=== PATIENT | male | born 1980 | race Caucasian/White ===

== ENCOUNTER 2016-10-20 11:17 | Inpatient (IN) | payer OTHER ==
[~2016-10-20] VITALS: Ht 152.4 cm; Wt 72.8 kg
[2016-10-20 11:22] VITALS: Ht 152.4 cm; Wt 72.8 kg
--- NOTE | 2016-10-20 12:36 | ERA ---
ER Documentation Chief Complaint Date/Time DATE: 10/20/16 TIME: 12:30 Chief Complaint SWELLING TO NECK AREA SENT BY MD FOR EVAL HPI 36 year old male presents to the emergency department referred by his physician Dr.Cesara Harrell for cough for past weeks. Patient states that he was seen by his physician two weeks prior to being seen and received Levaquin for pneumonia, he states that he finished his antibiotic course without relief however he started to develop supraclavicular swelling in this past week. He went to his physician who has referred him here for evaluation. Patient does admit to weight loss in the past few weeks. He denies fever, chest pain, shortness of breath Denies medications ROS All systems reviewed and are negative except as per history of present illness. Allergies Allergies: Coded Allergies: No Known Allergy (Unverified , 10/20/16) PMhx/Soc Medical and Surgical Hx: pt denies Medical Hx, pt denies Surgical Hx Hx Alcohol Use: No Hx Substance Use: No Hx Tobacco Use: No Smoking Status: Never smoker Physical Exam Vitals Vital Signs Date Time Temp Pulse Resp B/P Pulse Ox O2 Delivery O2 Flow Rate FiO2 10/20/16 11:22 98.4 85 18 115/66 99 Physical Exam Const: WD/WN NAD Head: Atraumatic Eyes: Normal Conjunctiva ENT: Normal External Ears, Nose and Mouth. Neck: Full range of motion..~ No meningismus. Resp: Clear to auscultation bilaterally Cardio: Regular rate and rhythm, no murmurs Abd: Soft, non tender, non distended. Normal bowel sounds Skin: swelling supraclavicular extending to neck Back: No midline or flank tenderness Ext: No cyanosis, or edema Neur: Awake and alert Psych: Normal Mood and Affect Result Diagram: 10/20/16 1219 10/20/16 1219 Results 24 hrs Laboratory Tests Test 10/20/16 12:19 10/20/16 12:21 White Blood Count 15.110^3/ul Red Blood Count 5.1010^6/ul Hemoglobin 15.8g/dl Hematocrit 47.9% Mean Corpuscular Volume 93.9fl Mean Corpuscular Hemoglobin 31.0pg Mean Corpuscular Hemoglobin Concent 33.0g/dl Red Cell Distribution Width 11.3% Platelet Count 00918^3/UL Mean Platelet Volume 9.5fl Neutrophils % 71.6% Lymphocytes % 12.6% Monocytes % 5.9% Eosinophils % 8.8% Basophils % 0.5% Nucleated Red Blood Cells % 0.0/100WBC Neutrophils # 10.810^3/ul Lymphocytes # 1.910^3/ul Monocytes # 0.910^3/ul Eosinophils # 1.310^3/ul Basophils # 0.110^3/ul Nucleated Red Blood Cells # 0.010^3/ul Sodium Level 141mmol/L Potassium Level 4.2mmol/L Chloride Level 105mmol/L Carbon Dioxide Level 29mmol/L Anion Gap 11 Blood Urea Nitrogen 10mg/dl Creatinine 0.84mg/dl Glucose Level 91mg/dl Calcium Level 9.2mg/dl Total Bilirubin 0.4mg/dl Direct Bilirubin 0.00mg/dl Indirect Bilirubin 0.4mg/dl Aspartate Amino Transf (AST/SGOT) 29IU/L Alanine Aminotransferase (ALT/SGPT) 49IU/L Alkaline Phosphatase 102IU/L Total Protein 8.0g/dl Albumin 3.5g/dl Globulin 4.50g/dl Albumin/Globulin Ratio 0.77 Urine Color YELLOW Urine Clarity SLIGHTLY CLOUDY Urine pH 5.0 Urine Specific [place] 1.023 Urine Ketones 1+mg/dL Urine Nitrite NEGATIVEmg/dL Urine Bilirubin NEGATIVEmg/dL Urine Urobilinogen NEGATIVEmg/dL Urine Leukocyte Esterase NEGATIVELeu/ul Urine Microscopic RBC 0/HPF Urine Microscopic WBC 1/HPF Urine Mucus MANY/HPF Urine Hemoglobin NEGATIVEmg/dL Urine Glucose NEGATIVEmg/dL Urine Total Protein NEGATIVEmg/dl Procedures/MDM 36-year-old male presents to the emergency department for cough evaluation of cough and supraclavicular swelling, patient was seen at his primary care physician 2 weeks ago and received Levaquin with no relief. Patient is appropriate for admission for possible fungal, TB infection or diffuse metastatic process. I consulted my supervising physician Dr. Lu who will consult the hospitalist. Patient was placed in isolation. He is stable to be transferred to [facility]. ED course, Blood work was done in the ED, CBC showed mild leukocytosis of 15 CXR: Right lower lobe consolidation, suspicious for pneumonia. Follow-up after treatment is recommended. CT chest with contrast, CT neck with contrast: Marked tree in bud micronodularity is seen diffusely throughout the bilateral lungs with greatest involvement of the right lower lobe. The appearance suggests an acute infectious bronchiolitis. Fungal and TB could have this appearance, however correlation with sputum and blood cultures is recommended. Considered less likely but not excluded is a diffuse metastatic process. Recommend follow up imaging after treatment to confirm resolution. Near complete collapse of the right middle lobe. Right hilar, mediastinal, right supraclavicular, and right lower posterior cervical chain lymphadenopathy is presumably reactive. Departure Diagnosis: Primary Impression: Lung infection Condition: Stable CARMEN SANTANA PA-C Oct 20, 2016 12:36
[2016-10-20 12:46] LABS: BASOPHIL # 0.1 10^3/ul (0.0-0.1); BASOPHILS % 0.5 % (0.0-2.0); EOSINOPHILS # 1.3 10^3/ul (0.0-0.5); EOSINOPHILS % 8.8 % (0.0-7.0); HEMATOCRIT 47.9 % (42.0-52.0); HEMOGLOBIN 15.8 g/dl (14.0-18.0); LYMPHOCYTES # 1.9 10^3/ul (0.8-2.9); LYMPHOCYTES % 12.6 % (15.0-51.0); MEAN CORPUSCULAR VOLUME 93.9 fl (82.0-101.0); MEAN PLATELET VOLUME 9.5 fl (7.4-10.4); MONOCYTE # 0.9 10^3/ul (0.3-0.9); MONOCYTES % 5.9 % (0.0-11.0); NEUTROPHIL # 10.8 10^3/ul (1.6-7.5); NEUTROPHILS % 71.6 % (39.0-77.0); PLATELET COUNT 562 10^3/UL (140-415); RED CELL DISTRIBUTION WIDTH 11.3 % (11.5-14.5); WHITE BLOOD COUNT 15.1 10^3/ul (4.8-10.8)
--- NOTE | 2016-10-20 12:56 | RADRPT ---
PROCEDURE: XR Chest. CLINICAL INDICATION: chest pain, supraclavicular swelling TECHNIQUE: Single frontal view of the chest was obtained COMPARISON: None FINDINGS: The heart and mediastinum are within normal limits. There is right lower lobe consolidation. There is no pleural effusion or pneumothorax. RPTAT: AA IMPRESSION: Right lower lobe consolidation, suspicious for pneumonia. Follow-up after treatment is recommended. .Tyshawn Esposito MD, MD Date Time Electronically viewed and signed by .Tyshawn Esposito MD, on 10/20/2016 12:55 .S/
[2016-10-20 13:01] LABS: ADD UMIC NO; UR ASCORBIC ACID NEGATIVE (NEGATIVE); UR BILIRUBIN (Dip) NEGATIVE (NEGATIVE); UR BLOOD (Dip) NEGATIVE (NEGATIVE); UR CLARITY SLIGHTLY CLOUDY (CLEAR); UR COLOR YELLOW (YELLOW); UR GLUCOSE (Dip) NEGATIVE (NEGATIVE); UR KETONES (Dip) 1+ mg/dL (NEGATIVE); UR LEUKOCYTE ESTERASE (Dip) NEGATIVE Leu/ul (NEGATIVE); UR MUCUS MANY /HPF (NONE SEEN); UR NITRITE (Dip) NEGATIVE (NEGATIVE); UR RBC 0 /HPF (0-5); UR SPECIFIC GRAVITY (Dip) 1.023 (1.003-1.030); UR TOTAL PROTEIN (Dip) NEGATIVE (NEGATIVE); UR UROBILINOGEN (Dip) NEGATIVE (NEGATIVE)
[2016-10-20 13:02] LABS: ALBUMIN 3.5 g/dl (3.3-4.9); ALBUMIN/GLOBULIN RATIO 0.77; BILIRUBIN,INDIRECT 0.4 mg/dl (0-1.1); BILIRUBIN,TOTAL 0.4 mg/dl (0.2-1.3); CALCIUM 9.2 mg/dl (8.4-10.2); CREATININE 0.84 mg/dl (0.61-1.24); POTASSIUM 4.2 mmol/L (3.5-5.1)
[2016-10-20] MEDS ORDERED: IOHEXOL 300MG/ML 150 ML BTL ONE (13:40)
[2016-10-20] MEDS ORDERED: SOD CHLORIDE 0.9% 100 ML ONE (13:40)
--- NOTE | 2016-10-20 14:11 | RADRPT ---
PROCEDURE: CT scan of the neck and chest with contrast. CLINICAL INDICATION: pain, swelling TECHNIQUE: CT scan of the neck and chest was performed. The patient was examined with the use of intravenous administration of 100 cc of Isovue 300 iodinated contrast. No reported complications oc curred. One or more of the following dose reduction techniques were used: Automated exposure contr ol, Adjustment of the mA and/or kV according to patient size, and/or use of iterative reconstruction technique. DOSE: CTDI = 7/9 mGy and the DLP = 565 mGy-cm. COMPARISON: None available FINDINGS: NECK: Enlarged right supraclavicular lymphadenopathy. Prominent right lower posterior cervical chain nodes are seen with inflammatory stranding in the rig ht supraclavicular space. No bulky anterior cervical chain lymphadenopathy. The bilateral parotid and submandibular glands are unremarkable The thyroid gland is unremarkable. No significant airway narrowing The bilateral prestyloid parapharyngeal spaces and retropharyngeal spaces are unremarkable. The major cervical vasculature are patent. The visualized paranasal sinuses and mastoids are clear. No aggressive osteoblastic or osteolytic lesions of the visualized skull base or cervical spine. CHEST: Right hilar and mediastinal lymphadenopathy identified. Near complete collapse of the right middle l obe. Marked tree in bud micronodularity is seen diffusely throughout the bilateral lungs with greate st involvement of the right lower lobe. No significant pleural or pericardial effusion. Heart is nor mal size. IMPRESSION: Marked tree in bud micronodularity is seen diffusely throughout the bilateral lungs with greatest in volvement of the right lower lobe. The appearance suggests an acute infectious bronchiolitis. Funga l and TB could have this appearance, however correlation with sputum and blood cultures is recommend ed. Considered less likely but not excluded is a diffuse metastatic process. Recommend follow up im aging after treatment to confirm resolution. Near complete collapse of the right middle lobe. Right hilar, mediastinal, right supraclavicular, and right lower posterior cervical chain lymphadeno [place] is presumably reactive. RPTAT: AA .Palomo Montana MD, Date Time Electronically viewed and signed by .Palomo Montana MD, on 10/20/2016 14:10 .T/
[2016-10-20 15:08] VITALS: TEMP 98.4
[2016-10-20] MEDS ORDERED: CEFEPIME 1GM/50 ML (PMX) 50 ML IVPB STA (15:38)
[2016-10-20] MEDS ORDERED: VANCOMYCIN 1 GM (PMX) 250 ML IVPB STA (15:38)
[2016-10-20] MEDS ORDERED: SOD CHLORIDE 0.9% 1,000 ML IV SCH (15:44)
[2016-10-20] MEDS ORDERED: ACETAMINOPHEN 325 MG TAB PO PRN ×2 (16:00→19:30)
[2016-10-20] MEDS ORDERED: ONDANSETRON 4 MG INJ IV PRN ×2 (16:00→19:30)
[2016-10-20 18:24] VITALS: BP 130/76; PULSE 90; RESP 18
[2016-10-20] MEDS ORDERED: morphine 2 MG INJ IV PRN (19:30)
[2016-10-20] MEDS ORDERED: NACL 0.9% 3 ML SYG IV SCH (19:30)
[2016-10-20] MEDS ORDERED: DOCUSATE SODIUM 100 MG CAP PO PRN (19:30)
[2016-10-20] MEDS ORDERED: HYDROCODONE/APAP (5/325) TAB PO PRN (19:30)
[2016-10-20] MEDS ORDERED: CEFTRIAXONE 1 GM/50 ML (PMX) 50 ML IVPB SCH (19:30)
[2016-10-20] MEDS ORDERED: ZOLPIDEM 5 MG TAB PO PRN (19:30)
[2016-10-20] MEDS ORDERED: AZITHROMYCIN 500MG/NS (PMX) 250 ML IVPB SCH (19:30)
[2016-10-20 21:47] LABS: TIME 2110
[2016-10-21 06:16] LABS: BASOPHIL # 0.1 10^3/ul (0.0-0.1); BASOPHILS % 0.5 % (0.0-2.0); EOSINOPHILS # 1.6 10^3/ul (0.0-0.5); EOSINOPHILS % 10.7 % (0.0-7.0); HEMATOCRIT 42.1 % (42.0-52.0); HEMOGLOBIN 13.8 g/dl (14.0-18.0); LYMPHOCYTES # 2.2 10^3/ul (0.8-2.9); LYMPHOCYTES % 15.4 % (15.0-51.0); MEAN CORPUSCULAR HEMOGLOBIN 30.7 pg (29.0-33.0); MEAN CORPUSCULAR HGB CONC 32.8 g/dl (32.0-37.0); MEAN CORPUSCULAR VOLUME 93.8 fl (82.0-101.0); MEAN PLATELET VOLUME 9.5 fl (7.4-10.4); MONOCYTE # 1.1 10^3/ul (0.3-0.9); MONOCYTES % 7.3 % (0.0-11.0); NEUTROPHIL # 9.5 10^3/ul (1.6-7.5); NEUTROPHILS % 65.1 % (39.0-77.0); PLATELET COUNT 476 10^3/UL (140-415); RED BLOOD COUNT 4.49 10^6/ul (4.70-6.10); RED CELL DISTRIBUTION WIDTH 11.6 % (11.5-14.5); WHITE BLOOD COUNT 14.6 10^3/ul (4.8-10.8)
--- NOTE | 2016-10-21 06:22 | HP ---
Date/Time of Note Date/Time of Note DATE: 10/21/16 TIME: 06:09 Assessment/Plan VTE Prophylaxis VTE Prophylaxis Intervention: SCD's Lines/Catheters IV C[facility]ter [facility] (from [facility]): Peripheral IV Assessment/Plan Assessment/Plan 1. Infectious bronchiolitis -IV antibiotic -will send sputum for Gram stain and culture -Rule out TB -Cocci antigen -Pulmonary and ID consult -Airborne/droplet isolation -His presentation and finding on imaging is most likely from a infectious process. If there is suspicion for malignancy, then will do cancer workup as needed. Notes that, per patient" right neck swelling", which is supraclavicular lymphadenopathy has already gone down remarkably supporting the diagnosis of infectious etiology 2. Sepsis, secondary to above -See #1 HPI/ROS Admit Date/Time Admit Date/Time Oct 20, 2016 at 15:46 Hx of Present Illness This is a 36-year-old male with no past medical history who presented to the emergency department complaining of right-sided neck swelling. He said that 2 weeks ago, started developing cough productive of yellow sputum as well as fever. He was diagnosed with pneumonia and was placed on Levaquin and after that he said his symptoms resolved completely. Yesterday, he noticed swelling on the right side of his neck which worsened today in the surgery he came here for evaluation. He said there is only very minimal tenderness. By the time I saw him, he said the swelling has already gone down remarkably since he presented to the ER. He looks very comfortable and currently he does not have any complaints. He denied shortness of breath, fever/chills or chest pain. Denied history of TB. When he presented to the ER, chest x-ray showed right lower lobe consolidation, suspicious for pneumonia. Chest CT showed Marked tree in bud micronodularity is seen diffusely throughout the bilateral lungs with greatest involvement of the right lower lobe. The appearance suggests an acute infectious bronchiolitis. Fungal and TB could have this appearance, however correlation with sputum and blood cultures is recommended. Considered less likely but not excluded is a diffuse metastatic process. Recommend follow up imaging after treatment to confirm resolution. Near complete collapse of the right middle lobe. Right hilar, mediastinal, right supraclavicular, and right lower posterior cervical chain lymphadenopathy is presumably reactive. PMH/Family/Social Social History Smoking Status: Light tobacco smoker Exam/Review of Systems Vital Signs Vitals Vital Signs Date Time Temp Pulse Resp B/P Pulse Ox O2 Delivery O2 Flow Rate FiO2 10/20/16 18:24 97.3 90 18 130/76 96 Room Air Intake and Output 10/20/16 10/20/16 10/21/16 15:00 23:00 07:00 Intake Total 500 ml 960 ml Balance 500 ml 960 ml Exam Constitutional: alert, oriented, well developed Head: atraumatic, normocephalic Eyes: EOMI, PERRL Respiratory: diminished breath sounds Cardiovascular: nl pulses, regular rate and rhythm Gastrointestinal: non-tender, soft Extremities: normal pulses Labs Result Diagram: 10/20/16 1219 10/20/16 1219 Medications Medications Current Medications Ondansetron HCl (Zofran Inj) 4 mg Q6H PRN IV NAUSEA AND/OR VOMITING; Start at 19:30 Acetaminophen (Tylenol Tab) 650 mg Q6H PRN PO PAIN LEVEL 1-3 OR FEVER; Start at 19:30 Acetaminophen/ Hydrocodone Bitart ([place] (5/325)) 1 tab Q6H PRN PO MODERATE PAIN LEVEL 4-6; Start 10/20/16 at 19:30 Morphine Sulfate (morphine) 2 mg Q4H PRN IV SEVERE PAIN LEVEL 7-10; Start 10/20 at 19:30 Docusate Sodium (Colace) 100 mg Q12H PRN PO CONSTIPATION; Start 10/20/16 at 19: 30 Zolpidem Tartrate (Ambien) 5 mg QHS PRN PO SLEEP; Start 10/20/16 at 19:30 Enoxaparin Sodium 40 mg 40 mg DAILY SC ; Start 10/21/16 at 09:00 Ceftriaxone Sodium 50 ml @ 100 mls/hr Q24H IVPB Last administered on t 20:44; Admin Dose 100 MLS/HR; Start 10/20/16 at 19:30 Azithromycin 250 ml @ 250 mls/hr Q24H IVPB Last administered on 10/20/16t 20: 44; Admin Dose 250 MLS/HR; Start 10/20/16 at 19:30 Voriconazole/ Dextrose (Vfend Iv/D5W) 100 ml @ 50 mls/hr Q12 IVPB ; Start 10/21 at 09:00 FUNMILAYO MARQUEZ MD Oct 21, 2016 06:21
[2016-10-21 06:42] LABS: ALANINE AMINOTRANSFERASE 43 IU/L (13-69); ALBUMIN 2.9 g/dl (3.3-4.9); ALBUMIN/GLOBULIN RATIO 0.74; ALKALINE PHOSPHATASE 88 IU/L (42-121); ANION GAP 10 (8-16); ASPARTATE AMINO TRANSFERASE 21 IU/L (15-46); BILIRUBIN,INDIRECT 0.2 mg/dl (0-1.1); BILIRUBIN,TOTAL 0.2 mg/dl (0.2-1.3); BLOOD UREA NITROGEN 15 mg/dl (7-20); CALCIUM 8.2 mg/dl (8.4-10.2); CARBON DIOXIDE 25 mmol/L (21-31); CHLORIDE 107 mmol/L (97-110); CHOL/HDL RATIO 7.3 RATIO; CHOLESTEROL 125 mg/dl (100-200); CREATININE 0.81 mg/dl (0.61-1.24); GLUCOSE 97 mg/dl (70-220); HDL CHOLESTEROL 17 mg/dl (28-63); MAGNESIUM 2.2 mg/dl (1.7-2.5); PHOSPHORUS 3.2 mg/dl (2.5-4.9); POTASSIUM 3.9 mmol/L (3.5-5.1); SODIUM 138 mmol/L (135-144); TOTAL PROTEIN 6.8 g/dl (6.1-8.1); TRIGLYCERIDES 83 mg/dl (0-149)
[2016-10-21 07:11] LABS: CARCINOEMBRYONIC ANTIGEN 0.5 ng/ml (0.0-5.0)
--- NOTE | 2016-10-21 07:23 | RADRPT ---
PROCEDURE: US Scrotum. CLINICAL INDICATION: Scrotal pain. TECHNIQUE: Multiple sonographic images of the scrotal region were obtained utilizing a linear arra y transducer with grayscale and color-flow and pulsed Doppler imaging. The images were reviewed on a high-resolution PACS workstation. COMPARISON: No prior studies are available for comparison. FINDINGS: The right testis measures 4.1 x 1.9 x 3.3 cm. The left testis measures 3.3 x 1.8 x 3.2 cm. There is no intratesticular mass. The epididymi are normal. There is normal flow to both testes demonstrated with color Doppler and pulsed Doppler sonography. There are small bilateral hydroceles. There is no varicocele. The scrotal wall is unremarkable. IMPRESSION: 1. Normal testes. 2. Small bilateral hydroceles. 3. Otherwise unremarkable study. RPTAT: QQ .Blayne Philippe MD, Date Time Electronically viewed and signed by .Blayne Philippe MD, on 10/21/2016 07:23 .R/
[2016-10-21 08:19] VITALS: BP 101/65; RESP 16
[2016-10-21] MEDS: ENOXAPARIN 40 MG/0.4 ML SYG SC SCH (09:00)
[2016-10-21] MEDS: DEXTROSE 5% IVPB SCH ×2 (09:18→23:52)
[2016-10-21] MEDS: VORICONAZOLE IVPB SCH ×2 (09:18→23:52)
[2016-10-21 09:40] LABS: CANCER ANTIGEN 19-9 2.5 U/ml (0.0-37.0)
[2016-10-21 14:36] VITALS: BP 102/62; RESP 16
--- NOTE | 2016-10-21 18:35 | CONS ---
Date/Time of Note Date/Time of Note DATE: 10/21/16 TIME: 18:31 Assessment/Plan Assessment/Plan Additional Assessment/Plan IMP: 1. RML consolidation/cavity with surrounding tree-in-bud micronodules--most c/w pulm TB RECS: 1. AFB x 3 and PCR 2. HIV 3. CRAG 4. Cocci serologies Consultation Date/Type/Reason Admit Date/Time Oct 20, 2016 at 15:46 Type of Consultation: Pulm Hx of Present Illness This is a 36-year-old male with no past medical history who presented to the emergency department complaining of right-sided neck swelling. He said that 2 weeks ago, started developing cough productive of yellow sputum as well as fever. He was diagnosed with pneumonia and was placed on Levaquin and after that he said his symptoms resolved completely. Yesterday, he noticed swelling on the right side of his neck which worsened today in the surgery he came here for evaluation. He said there is only very minimal tenderness. By the time I saw him, he said the swelling has already gone down remarkably since he presented to the ER. He looks very comfortable and currently he does not have any complaints. He denied shortness of breath, fever/chills or chest pain. Denied history of TB. Constitutional: no complaints Eyes: no complaints ENT: no complaints Respiratory: cough, shortness of breath Cardiovascular: no complaints Gastrointestinal: no complaints Genitourinary: no complaints Musculoskeletal: no complaints Skin: no complaints Neurologic: no complaints Endocrine: no complaints Lymphatic: no complaints Past Medical History Medical History: no pertinent history Family History Significant Family History: no pertinent family hx Social History Alcohol Use: none Smoking Status: Never smoker Drug Use: none Exam/Review of Systems Vital Signs Vitals Vital Signs Date Time Temp Pulse Resp B/P Pulse Ox O2 Delivery O2 Flow Rate FiO2 10/21/16 14:36 98.2 89 16 102/62 92 10/20/16 18:24 Room Air Intake and Output 10/20/16 10/20/16 10/21/16 15:00 23:00 07:00 Intake Total 500 ml 960 ml Balance 500 ml 960 ml Exam Constitutional: alert Head: atraumatic, normocephalic Eyes: EOMI, nl conjunctiva, nl lids Neck: masses Respiratory: clear to auscultation Cardiovascular: regular rate and rhythm Gastrointestinal: nl liver, spleen, non-tender, soft Musculoskeletal: nl extremities to inspection Extremities: normal pulses Results Result Diagram: 10/21/16 0534 10/21/16 0534 Results 24 hrs Laboratory Tests Test 10/20/16 21:10 10/21/16 05:34 TB Skin Test Induration Pending TB Skin Test Administer Date [id number] TB Skin Test Administer Time 2109 TB Skin Test Injection Site Left Upper Forearm White Blood Count 14.6 H Red Blood Count 4.49 L Hemoglobin 13.8 L Hematocrit 42.1 Mean Corpuscular Volume 93.8 Mean Corpuscular Hemoglobin 30.7 Mean Corpuscular Hemoglobin Concent 32.8 Red Cell Distribution Width 11.6 Platelet Count 476 H Mean Platelet Volume 9.5 Neutrophils % 65.1 Lymphocytes % 15.4 Monocytes % 7.3 Eosinophils % 10.7 H Basophils % 0.5 Nucleated Red Blood Cells % 0.0 Neutrophils # 9.5 H Lymphocytes # 2.2 Monocytes # 1.1 H Eosinophils # 1.6 H Basophils # 0.1 Nucleated Red Blood Cells # 0.0 Sodium Level 138 Potassium Level 3.9 Chloride Level 107 Carbon Dioxide Level 25 Anion Gap 10 Blood Urea Nitrogen 15 Creatinine 0.81 Glucose Level 97 Hemoglobin A1c 5.9 Calcium Level 8.2 L Phosphorus Level 3.2 Magnesium Level 2.2 Total Bilirubin 0.2 Direct Bilirubin 0.00 Indirect Bilirubin 0.2 Aspartate Amino Transf (AST/SGOT) 21 Alanine Aminotransferase (ALT/SGPT) 43 Alkaline Phosphatase 88 Total Protein 6.8 # Albumin 2.9 L Globulin 3.90 H Albumin/Globulin Ratio 0.74 Triglycerides Level 83 Cholesterol Level 125 LDL Cholesterol, Calculated 91 HDL Cholesterol 17 L Cholesterol/HDL Ratio 7.3 Carcinoembryonic Antigen 0.5 CA 19-9 Antigen 2.5 HIV (1&2) Antibody NEGATIVE Medications Medications Current Medications Ondansetron HCl (Zofran Inj) 4 mg Q6H PRN IV NAUSEA AND/OR VOMITING; Start at 19:30 Acetaminophen (Tylenol Tab) 650 mg Q6H PRN PO PAIN LEVEL 1-3 OR FEVER; Start at 19:30 Acetaminophen/ Hydrocodone Bitart ([place] (5/325)) 1 tab Q6H PRN PO MODERATE PAIN LEVEL 4-6; Start 10/20/16 at 19:30 Morphine Sulfate (morphine) 2 mg Q4H PRN IV SEVERE PAIN LEVEL 7-10; Start 10/20 at 19:30 Docusate Sodium (Colace) 100 mg Q12H PRN PO CONSTIPATION; Start 10/20/16 at 19: 30 Zolpidem Tartrate (Ambien) 5 mg QHS PRN PO SLEEP; Start 10/20/16 at 19:30 Enoxaparin Sodium 40 mg 40 mg DAILY SC ; Start 10/21/16 at 09:00 Ceftriaxone Sodium 50 ml @ 100 mls/hr Q24H IVPB Last administered on 20:44; Admin Dose 100 MLS/HR; Start 10/20/16 at 19:30 Azithromycin 250 ml @ 250 mls/hr Q24H IVPB Last administered on 10/20/16 20: 44; Admin Dose 250 MLS/HR; Start 10/20/16 at 19:30 Voriconazole/ Dextrose (Vfend Iv/D5W) 100 ml @ 50 mls/hr Q12 IVPB Last administered on 10/21/16 09:18; Admin Dose 50 MLS/HR; Start 10/21/16 at 09:00 RADHA PATE MD Oct 21, 2016 18:35
[2016-10-21] MEDS ORDERED: VANCOMYCIN IV PER PHARMACY XX SCH (19:00)
[2016-10-21] MEDS ORDERED: VANCOMYCIN 1.25 GM in SOD CHLORIDE 0.9% 250 ML IVPB SCH (20:00)
[2016-10-21 20:21] VITALS: BP 106/68; RESP 20
[2016-10-21] MEDS ORDERED: VANCOMYCIN 1 GM (PMX) 250 ML IVPB SCH (21:00)
--- NOTE | 2016-10-21 22:29 | CONS ---
DATE OF ADMISSION: 10/20/2016 DATE OF CONSULTATION: 10/21/2016 REASON FOR CONSULTATION: Antibiotic management. HISTORY OF PRESENT ILLNESS: The patient is a 36-year-old, male, with no past medical history, who came to the emergency room with right-sided neck swelling. He notes that 2 weeks ago he started developing a cough productive of yellow sputum as well as subjective feelings of fever. He was diagnosed with pneumonia and placed on Levaquin, and after that his symptoms resolved completely. Yesterday, however, he noticed swelling on the right side of his neck, which worsened today, and he came for evaluation. There is minimal tenderness. His swelling had gone down remarkably since he presented to the emergency room. Denies fever, chills, shortness of breath. DIAGNOSTIC DATA: Chest x-ray showed right lower lobe consolidation suspicious for pneumonia. CT scan of the chest showed marked tree-in-bud micro nodularity diffusely throughout the lungs bilaterally with greatest involvement of the right lower lobe suggestive of acute infectious bronchiolitis. According to radiology, fungal and TB change could have this appearance, however, correlation with sputum and blood cultures were recommended. There is near complete collapse of the right middle lobe, right hilar mediastinal, right supraclavicular, and right lower posterior cervical chain lymphadenopathy is presumably reactive. Diffuse metastatic process can be considered, but is on likely. PAST MEDICAL HISTORY: Operations as outlined. FAMILY HISTORY: Noncontributory. SOCIAL HISTORY: He smokes 1 or 2 cigarettes per day. ALLERGIES: NONE TO PENICILLIN, SULFA, OR FOODS. MEDICATIONS: Per chart. REVIEW OF SYSTEMS: As per HPI. PHYSICAL EXAMINATION: GENERAL: Patient is a well-developed, well-nourished male, who is alert, responsive, in no acute distress. VITAL SIGNS: Stable. He is afebrile. SKIN: Without generalized rash. HEENT: Within normal limits. NECK: Supple. Lymph nodes nonpalpable. CHEST: Decreased breath sounds at the bases. HEART: Without murmur or gallop. ABDOMEN: Soft, nontender, without organosplenomegaly or masses. EXTREMITIES: Without cyanosis, clubbing, or edema. RECTAL/GENITAL: Deferred. NEUROLOGIC: No focal neurological abnormalities. ANCILLARY LABORATORY DATA: White count of 15.1, H and H of 15.8 and 47.9, platelet count 562,000. BUN and creatinine 10/0.84, random glucose 91. PLAN: The patient was started on azithromycin and ceftriaxone as well as voriconazole. He had been on Levaquin previously. Blood cultures showed gram-positive cocci in clusters 1 out of 2. Patient was started on vancomycin. He is still on ceftriaxone and azithromycin. I am going to switch him over to cefepime. Await cultures. I will dictate my findings to the hospitalist. Of note is the fact that HIV screening was ordered. QuantiFERON Gold, PPD intermediate, COXI antibodies were ordered, which I concur. I will dictate my findings to the hospitalist. Dictated By: Johan Kearney MD JD/[email or web address] /Document#: [id number]
[2016-10-21] MEDS: CEFEPIME 1GM/50 ML (PMX) 50 ML IVPB SCH (23:52)
[2016-10-22 02:29] VITALS: BP 101/64; RESP 20
[2016-10-22 06:27] LABS: BASOPHIL # 0.1 10^3/ul (0.0-0.1); BASOPHILS % 0.6 % (0.0-2.0); EOSINOPHILS # 1.4 10^3/ul (0.0-0.5); EOSINOPHILS % 10.3 % (0.0-7.0); HEMATOCRIT 43.4 % (42.0-52.0); HEMOGLOBIN 14.1 g/dl (14.0-18.0); LYMPHOCYTES % 15.1 % (15.0-51.0); MEAN CORPUSCULAR HEMOGLOBIN 30.7 pg (29.0-33.0); MEAN CORPUSCULAR HGB CONC 32.5 g/dl (32.0-37.0); MEAN CORPUSCULAR VOLUME 94.6 fl (82.0-101.0); MEAN PLATELET VOLUME 9.6 fl (7.4-10.4); MONOCYTE # 0.9 10^3/ul (0.3-0.9); MONOCYTES % 6.7 % (0.0-11.0); NEUTROPHIL # 9.1 10^3/ul (1.6-7.5); NEUTROPHILS % 66.9 % (39.0-77.0); PLATELET COUNT 441 10^3/UL (140-415); RED BLOOD COUNT 4.59 10^6/ul (4.70-6.10); RED CELL DISTRIBUTION WIDTH 11.7 % (11.5-14.5); WHITE BLOOD COUNT 13.5 10^3/ul (4.8-10.8)
[2016-10-22 07:08] LABS: CALCIUM 8.5 mg/dl (8.4-10.2); CREATININE 0.77 mg/dl (0.61-1.24); POTASSIUM 4.2 mmol/L (3.5-5.1)
[2016-10-22] MEDS ORDERED: VANCOMYCIN 1 GM in NS 250 ML IVPB SCH (08:00)
[2016-10-22 08:25] VITALS: BP 110/65; RESP 16
[2016-10-22] MEDS: CEFEPIME 1GM/50 ML (PMX) 50 ML IVPB SCH ×2 (08:45→20:37)
[2016-10-22] MEDS: ENOXAPARIN 40 MG/0.4 ML SYG SC SCH (08:51)
[2016-10-22] MEDS: VORICONAZOLE IVPB SCH ×2 (12:59→21:24)
[2016-10-22] MEDS: DEXTROSE 5% IVPB SCH ×2 (12:59→21:24)
[2016-10-22 13:01] VITALS: BP 96/54; RESP 16
--- NOTE | 2016-10-22 16:46 | CONS ---
Date/Time of Note Date/Time of Note DATE: 10/22/16 TIME: 16:44 Consult Date/Type/Reason Admit Date/Time Oct 20, 2016 at 15:46 Initial Consult Date Type of Consultation: Pulm Subjective Remains on broad-spectrum abx. BC x 1 for staph noted. Objective Vital Signs Date Time Temp Pulse Resp B/P Pulse Ox O2 Delivery O2 Flow Rate FiO2 10/22/16 13:01 98.4 78 16 96/54 95 10/20/16 18:24 Room Air Intake and Output 10/21/16 10/21/16 10/22/16 15:00 23:00 07:00 Intake Total 100 ml 720 ml 1010 ml Balance 100 ml 720 ml 1010 ml Exam HEENT: Neck supple; no JVD; no LAD CVS: RRR, S1 and S2 CHEST: Right basilar rales and rhonchi ABD: Soft, NT, + BS EXT: No c/c/e Results/Medications Result Diagram: 10/22/16 0554 10/22/16 0554 Results 24 hrs Laboratory Tests Test 10/21/16 19:48 10/22/16 05:54 HIV (1&2) Antibody NEGATIVE White Blood Count 13.5 H Red Blood Count 4.59 L Hemoglobin 14.1 Hematocrit 43.4 Mean Corpuscular Volume 94.6 Mean Corpuscular Hemoglobin 30.7 Mean Corpuscular Hemoglobin Concent 32.5 Red Cell Distribution Width 11.7 Platelet Count 441 H Mean Platelet Volume 9.6 Neutrophils % 66.9 Lymphocytes % 15.1 Monocytes % 6.7 Eosinophils % 10.3 H Basophils % 0.6 Nucleated Red Blood Cells % 0.0 Neutrophils # 9.1 H Lymphocytes # 2.0 Monocytes # 0.9 Eosinophils # 1.4 H Basophils # 0.1 Nucleated Red Blood Cells # 0.0 Sodium Level 138 Potassium Level 4.2 Chloride Level 107 Carbon Dioxide Level 24 Anion Gap 11 Blood Urea Nitrogen 9 Creatinine 0.77 Glucose Level 111 Calcium Level 8.5 Medications Current Medications Ondansetron HCl (Zofran Inj) 4 mg Q6H PRN IV NAUSEA AND/OR VOMITING; Start at 19:30 Acetaminophen (Tylenol Tab) 650 mg Q6H PRN PO PAIN LEVEL 1-3 OR FEVER; Start at 19:30 Acetaminophen/ Hydrocodone Bitart ([place] (5/325)) 1 tab Q6H PRN PO MODERATE PAIN LEVEL 4-6; Start 10/20/16 at 19:30 Morphine Sulfate (morphine) 2 mg Q4H PRN IV SEVERE PAIN LEVEL 7-10; Start 10/20 at 19:30 Docusate Sodium (Colace) 100 mg Q12H PRN PO CONSTIPATION; Start 10/20/16 at 19: 30 Zolpidem Tartrate (Ambien) 5 mg QHS PRN PO SLEEP; Start 10/20/16 at 19:30 Enoxaparin Sodium 40 mg 40 mg DAILY SC Last administered on 10/22/16 08:51; Admin Dose 40 MG; Start 10/21/16 at 09:00 Voriconazole 200 mg/Dextrose 100 ml @ 50 mls/hr Q12 IVPB Last administered on 10/22/16 12:59; Admin Dose 50 MLS/HR; Start 10/21/16 at 09:00 Cefepime HCl 50 ml @ 100 mls/hr Q12 IVPB Last administered on 10/22/16 08:45 ; Admin Dose 100 MLS/HR; Start 10/21/16 at 21:00 Vancomycin HCl (Vancocin) 250 ml @ 125 mls/hr Q12H IVPB Last administered on 09:49; Admin Dose 125 MLS/HR; Start 10/22/16 at 08:00 Miscellaneous Information (*Rx Drug Level Order Reminder*) VANCOMYCIN TROUGH AT 0700 ONCE ONCE XX ; Start 10/23/16 at 07:00; Stop 10/23/16 at 07:01 Assessment/Plan Chief Complaint/Hosp Course This is a 36-year-old male with no past medical history who presented to the emergency department complaining of right-sided neck swelling. He said that 2 weeks ago, started developing cough productive of yellow sputum as well as fever. He was diagnosed with pneumonia and was placed on Levaquin and after that he said his symptoms resolved completely. Yesterday, he noticed swelling on the right side of his neck which worsened today in the surgery he came here for evaluation. He said there is only very minimal tenderness. By the time I saw him, he said the swelling has already gone down remarkably since he presented to the ER. He looks very comfortable and currently he does not have any complaints. He denied shortness of breath, fever/chills or chest pain. Denied history of TB. Problems: Additional Assessment/Plan IMP: 1. RML consolidation/cavity with surrounding tree-in-bud micronodules--most c/w pulm TB vs. cocci vs. cypto. RECS: 1. AFB x 3 and PCR 2. HIV 3. CRAG 4. Cocci serologies 5. CAP abx coverage as per RADHA MEYERS MD Oct 22, 2016 16:46
--- NOTE | 2016-10-22 18:36 | PN ---
Date/Time of Note Date/Time of Note DATE: 10/22/16 TIME: 18:34 Assessment/Plan VTE Prophylaxis VTE Prophylaxis Intervention: ambulation Lines/Catheters [facility] Saline Lock Assessment/Plan Chief Complaint/Hosp Course 1. Infectious bronchiolitis -IV antibiotic -Follow-up on sputum for Gram stain and culture -Rule out TB -Cocci antigen -Pulmonary and ID consults appreciated -Airborne/droplet isolation -His presentation and finding on imaging is most likely from a infectious process, tumor markers and testicular ultrasound are negative 2. Sepsis, secondary to above -See #1 -102 blood culture shows staph possibly secondary to contamination, follow-up ID recommendation Problems: Subjective 24 Hr Interval Summary Constitutional: no complaints Exam/Review of Systems Vital Signs Vitals Vital Signs Date Time Temp Pulse Resp B/P Pulse Ox O2 Delivery O2 Flow Rate FiO2 10/22/16 13:01 98.4 78 16 96/54 95 10/20/16 18:24 Room Air Intake and Output 10/21/16 10/21/16 10/22/16 15:00 23:00 07:00 Intake Total 100 ml 720 ml 1010 ml Balance 100 ml 720 ml 1010 ml Exam Constitutional: alert, oriented Respiratory: clear to auscultation Cardiovascular: regular rate and rhythm Gastrointestinal: soft, No distended Musculoskeletal: nl extremities to inspection Results Result Diagram: 10/22/16 0554 10/22/16 0554 Results 24 hrs Laboratory Tests Test 10/21/16 19:48 10/22/16 05:54 HIV (1&2) Antibody NEGATIVE White Blood Count 13.5 H Red Blood Count 4.59 L Hemoglobin 14.1 Hematocrit 43.4 Mean Corpuscular Volume 94.6 Mean Corpuscular Hemoglobin 30.7 Mean Corpuscular Hemoglobin Concent 32.5 Red Cell Distribution Width 11.7 Platelet Count 441 H Mean Platelet Volume 9.6 Neutrophils % 66.9 Lymphocytes % 15.1 Monocytes % 6.7 Eosinophils % 10.3 H Basophils % 0.6 Nucleated Red Blood Cells % 0.0 Neutrophils # 9.1 H Lymphocytes # 2.0 Monocytes # 0.9 Eosinophils # 1.4 H Basophils # 0.1 Nucleated Red Blood Cells # 0.0 Sodium Level 138 Potassium Level 4.2 Chloride Level 107 Carbon Dioxide Level 24 Anion Gap 11 Blood Urea Nitrogen 9 Creatinine 0.77 Glucose Level 111 Calcium Level 8.5 Medications Medications Current Medications Ondansetron HCl (Zofran Inj) 4 mg Q6H PRN IV NAUSEA AND/OR VOMITING; Start at 19:30 Acetaminophen (Tylenol Tab) 650 mg Q6H PRN PO PAIN LEVEL 1-3 OR FEVER; Start at 19:30 Acetaminophen/ Hydrocodone Bitart ([place] (5/325)) 1 tab Q6H PRN PO MODERATE PAIN LEVEL 4-6; Start 10/20/16 at 19:30 Morphine Sulfate (morphine) 2 mg Q4H PRN IV SEVERE PAIN LEVEL 7-10; Start 10/20 at 19:30 Docusate Sodium (Colace) 100 mg Q12H PRN PO CONSTIPATION; Start 10/20/16 at 19: 30 Zolpidem Tartrate (Ambien) 5 mg QHS PRN PO SLEEP; Start 10/20/16 at 19:30 Enoxaparin Sodium 40 mg 40 mg DAILY SC Last administered on 10/22/16 08:51; Admin Dose 40 MG; Start 10/21/16 at 09:00 Voriconazole 200 mg/Dextrose 100 ml @ 50 mls/hr Q12 IVPB Last administered on 10/22/16 12:59; Admin Dose 50 MLS/HR; Start 10/21/16 at 09:00; Stop 10/22/16 at 23:59 Cefepime HCl 50 ml @ 100 mls/hr Q12 IVPB Last administered on 10/22/16 08:45 ; Admin Dose 100 MLS/HR; Start 10/21/16 at 21:00 Vancomycin HCl (Vancocin) 250 ml @ 125 mls/hr Q12H IVPB ; Start 10/22/16 at 22: 00 Miscellaneous Information (*Rx Drug Level Order Reminder*) VANCOMYCIN TROUGH AT 0900 ONCE ONCE XX ; Start 10/23/16 at 09:00; Stop 10/23/16 at 09:01 Voriconazole (Vfend) 200 mg Q12 PO ; Start 10/23/16 at 09:00 LEX JANG Oct 22, 2016 18:36
[2016-10-22 19:35] VITALS: BP 151/61; RESP 20
--- NOTE | 2016-10-22 20:00 | CONS ---
Date/Time of Note Date/Time of Note DATE: 10/22/16 TIME: 19:50 Assessment/Plan Assessment/Plan Chief Complaint/Hosp Course ID PROGRESS NOTE CURRENT ABX: =>Vanco IV + Cefepime + VFEND 24H INTERVAL SUMMARY * Feeling much better, no cough, ambulatory in room, no fevers * BCx 10/20 (+)1/2 bottles Staph species => Suspect skin contaminant * PPD placed 10/20 pm (-) to date * Sputum: AFB SMEAR Final ACID FAST BACILLI NONE SEEN EXAM GEN: VSS, NAD HEENT: Unremarkable NECK: supple CVS: RRR CHEST: Equal chest rise bilaterally without dyspnea on observation ABD: Soft, NT, EXT: warm.moves all extremities SKIN: No rash, no diaphoresis ID ASSESSMENT 36 yo M admit with: 1. SIRS w/leukocytosis, no fevers/chills 2. Infectious bronchiolitis 3. Possible PNA -> RML consolidation/cavity with surrounding tree-in-bud micronodules--most c/w pulm TB vs. cocci vs. cypto.= Per pulmonary note * PPD placed 10/20 pm (-) to date * Sputum: AFB SMEAR Final ACID FAST BACILLI NONE SEEN 4. Bacteremia 10/20 BCx (+)1/2 bottles from ED w/Staph species -> Doubt sepsis, no fevers, suspect skin contaminant ( ? ) MRSA Nares-> Pending INVASIVES: PIV ABX ALLERGY: KNDA CURRENT ABX: =>=>Vanco IV + Cefepime + VFEND ID RECOMMENDATIONS 1. Continue ABX 2. If PPD (-) Tomorrow = 72 H, then DC isolation 3. Check for MRSA Nares, if (-) and if BCx (+)Staph Coag Negative then DC Vanco IV . Problems: Consultation Date/Type/Reason Admit Date/Time Oct 20, 2016 at 15:46 Initial Consult Date Type of Consultation: ID Exam/Review of Systems Vital Signs Vitals Vital Signs Date Time Temp Pulse Resp B/P Pulse Ox O2 Delivery O2 Flow Rate FiO2 10/22/16 19:35 98.3 86 20 151/61 98 10/20/16 18:24 Room Air Intake and Output 10/21/16 10/21/16 10/22/16 15:00 23:00 07:00 Intake Total 100 ml 720 ml 1010 ml Balance 100 ml 720 ml 1010 ml Results Result Diagram: 10/22/16 0554 10/22/16 0554 Results 24 hrs Laboratory Tests Test 10/22/16 05:54 White Blood Count 13.5 H Red Blood Count 4.59 L Hemoglobin 14.1 Hematocrit 43.4 Mean Corpuscular Volume 94.6 Mean Corpuscular Hemoglobin 30.7 Mean Corpuscular Hemoglobin Concent 32.5 Red Cell Distribution Width 11.7 Platelet Count 441 H Mean Platelet Volume 9.6 Neutrophils % 66.9 Lymphocytes % 15.1 Monocytes % 6.7 Eosinophils % 10.3 H Basophils % 0.6 Nucleated Red Blood Cells % 0.0 Neutrophils # 9.1 H Lymphocytes # 2.0 Monocytes # 0.9 Eosinophils # 1.4 H Basophils # 0.1 Nucleated Red Blood Cells # 0.0 Sodium Level 138 Potassium Level 4.2 Chloride Level 107 Carbon Dioxide Level 24 Anion Gap 11 Blood Urea Nitrogen 9 Creatinine 0.77 Glucose Level 111 Calcium Level 8.5 Medications Medications Current Medications Ondansetron HCl (Zofran Inj) 4 mg Q6H PRN IV NAUSEA AND/OR VOMITING; Start at 19:30 Acetaminophen (Tylenol Tab) 650 mg Q6H PRN PO PAIN LEVEL 1-3 OR FEVER; Start at 19:30 Acetaminophen/ Hydrocodone Bitart ([place] (5/325)) 1 tab Q6H PRN PO MODERATE PAIN LEVEL 4-6; Start 10/20/16 at 19:30 Morphine Sulfate (morphine) 2 mg Q4H PRN IV SEVERE PAIN LEVEL 7-10; Start 10/20 at 19:30 Docusate Sodium (Colace) 100 mg Q12H PRN PO CONSTIPATION; Start 10/20/16 at 19: 30 Zolpidem Tartrate (Ambien) 5 mg QHS PRN PO SLEEP; Start 10/20/16 at 19:30 Enoxaparin Sodium 40 mg 40 mg DAILY SC Last administered on 10/22/16 08:51; Admin Dose 40 MG; Start 10/21/16 at 09:00 Voriconazole 200 mg/Dextrose 100 ml @ 50 mls/hr Q12 IVPB Last administered on 10/22/16 12:59; Admin Dose 50 MLS/HR; Start 10/21/16 at 09:00; Stop 10/22/16 at 23:59 Cefepime HCl 50 ml @ 100 mls/hr Q12 IVPB Last administered on 10/22/16t 08:45 ; Admin Dose 100 MLS/HR; Start 10/21/16 at 21:00 Vancomycin HCl (Vancocin) 250 ml @ 125 mls/hr Q12H IVPB ; Start 10/22/16 at 22: 00 Miscellaneous Information (*Rx Drug Level Order Reminder*) VANCOMYCIN TROUGH AT 0900 ONCE ONCE XX ; Start 10/23/16 at 09:00; Stop 10/23/16 at 09:01 Voriconazole (Vfend) 200 mg Q12 PO ; Start 10/23/16 at 09:00 FRANCOIS JEWELL NP Oct 22, 2016 20:00
[2016-10-22 21:34] LABS: FORTY EIGHT HOUR READING 0 mm (0-9)
[2016-10-22] MEDS: VANCOMYCIN 1 GM in NS 250 ML IVPB SCH (22:47)
[2016-10-23 02:07] VITALS: BP 102/55; RESP 18
[2016-10-23 06:08] LABS: BASOPHIL # 0.1 10^3/ul (0.0-0.1); BASOPHILS % 0.8 % (0.0-2.0); EOSINOPHILS # 1.6 10^3/ul (0.0-0.5); EOSINOPHILS % 12.2 % (0.0-7.0); HEMATOCRIT 42.8 % (42.0-52.0); HEMOGLOBIN 14.1 g/dl (14.0-18.0); LYMPHOCYTES # 2.4 10^3/ul (0.8-2.9); LYMPHOCYTES % 18.6 % (15.0-51.0); MEAN CORPUSCULAR HEMOGLOBIN 31.1 pg (29.0-33.0); MEAN CORPUSCULAR HGB CONC 32.9 g/dl (32.0-37.0); MEAN CORPUSCULAR VOLUME 94.3 fl (82.0-101.0); MEAN PLATELET VOLUME 9.8 fl (7.4-10.4); NEUTROPHIL # 7.7 10^3/ul (1.6-7.5); NEUTROPHILS % 59.9 % (39.0-77.0); PLATELET COUNT 436 10^3/UL (140-415); RED BLOOD COUNT 4.54 10^6/ul (4.70-6.10); RED CELL DISTRIBUTION WIDTH 11.7 % (11.5-14.5); WHITE BLOOD COUNT 12.9 10^3/ul (4.8-10.8)
[2016-10-23 06:15] LABS: CALCIUM 9.1 mg/dl (8.4-10.2); CREATININE 0.92 mg/dl (0.61-1.24); POTASSIUM 4.1 mmol/L (3.5-5.1)
[2016-10-23 08:02] VITALS: BP 101/67; RESP 18
[2016-10-23] MEDS: VORICONAZOLE 200 MG TAB PO SCH ×2 (08:27→21:24)
[2016-10-23] MEDS: CEFEPIME 1GM/50 ML (PMX) 50 ML IVPB SCH ×2 (08:29→20:49)
[2016-10-23] MEDS: ENOXAPARIN 40 MG/0.4 ML SYG SC SCH (08:39)
--- NOTE | 2016-10-23 10:32 | PN ---
Date/Time of Note Date/Time of Note DATE: 10/23/16 TIME: 10:25 Assessment/Plan VTE Prophylaxis VTE Prophylaxis Intervention: SCD's Lines/Catheters [facility] Saline Lock Assessment/Plan Chief Complaint/Hosp Course Assessment and plan: 1. Infectious bronchiolitis -Continue IV antibiotic as per ID -Follow-up on sputum for Gram stain and culture -Rule out TB, AFP negative 1, PPD negative 72 hours. Follow-up ID recommendation for discontinuation of isolation -Cocci antigen -Pulmonary and ID consults appreciated -Airborne/droplet isolation as per infectious disease -HIV negative -His presentation and finding on imaging is most likely from a infectious process, tumor markers and testicular ultrasound are negative 2. Sepsis, secondary to above -See #1 -blood culture shows staph possibly secondary to contamination, follow-up ID recommendation -Continue Rocephin 3. Near complete collapse of the right middle lobe. Follow-up pulmonology recommendations Incentive spirometer Disposition: Follow infectious disease recommendations Problems: Subjective 24 Hr Interval Summary Free Text/Dictation Patient denies of any chest pain or shortness of breath Patient is afebrile Denies of any cough or hemoptysis Denies of any night sweats Tolerating oral intake Exam/Review of Systems Vital Signs Vitals Vital Signs Date Time Temp Pulse Resp B/P Pulse Ox O2 Delivery O2 Flow Rate FiO2 10/23/16 08:02 97.6 78 18 101/67 96 10/20/16 18:24 Room Air Intake and Output 10/22/16 10/22/16 10/23/16 15:00 23:00 07:00 Intake Total 400 ml 50 ml 930 ml Balance 400 ml 50 ml 930 ml Exam General: The patient is well-developed, Not in acute distress. HEENT: Atraumatic, normocephalic. The pupils are equal and round . Neck: Supple with full range of motion. Chest: Normal expansion of the thorax during inspiration Lungs: Clear to auscultation bilaterally Heart: Normal S1-S2, Regular rhythm and rate. Abdomen: Soft , nontender, nondistended , bowel sounds are present. Extremities: Normal to inspection, no edema no cyanosis Neurologic: Normal mental status,The patient is awake, alert and oriented . Results Result Diagram: 10/23/16 0526 10/23/16 0526 Results 24 hrs Laboratory Tests Test 10/23/16 05:26 White Blood Count 12.9 H Red Blood Count 4.54 L Hemoglobin 14.1 Hematocrit 42.8 Mean Corpuscular Volume 94.3 Mean Corpuscular Hemoglobin 31.1 Mean Corpuscular Hemoglobin Concent 32.9 Red Cell Distribution Width 11.7 Platelet Count 436 H Mean Platelet Volume 9.8 Neutrophils % 59.9 Lymphocytes % 18.6 Monocytes % 8.0 Eosinophils % 12.2 H Basophils % 0.8 Nucleated Red Blood Cells % 0.0 Neutrophils # 7.7 H Lymphocytes # 2.4 Monocytes # 1.0 H Eosinophils # 1.6 H Basophils # 0.1 Nucleated Red Blood Cells # 0.0 Sodium Level 138 Potassium Level 4.1 Chloride Level 106 Carbon Dioxide Level 29 Anion Gap 7 L Blood Urea Nitrogen 8 Creatinine 0.92 Glucose Level 110 Calcium Level 9.1 Imaging Free Text/Dictation CT of the chest and neck FINDINGS: NECK: Enlarged right supraclavicular lymphadenopathy. Prominent right lower posterior cervical chain nodes are seen with inflammatory stranding in the right supraclavicular space. No bulky anterior cervical chain lymphadenopathy. The bilateral parotid and submandibular glands are unremarkable The thyroid gland is unremarkable. No significant airway narrowing The bilateral prestyloid parapharyngeal spaces and retropharyngeal spaces are unremarkable. The major cervical vasculature are patent. The visualized paranasal sinuses and mastoids are clear. No aggressive osteoblastic or osteolytic lesions of the visualized skull base or cervical spine. CHEST: Right hilar and mediastinal lymphadenopathy identified. Near complete collapse of the right middle lobe. Marked tree in bud micronodularity is seen diffusely throughout the bilateral lungs with greatest involvement of the right lower lobe. No significant pleural or pericardial effusion. Heart is normal size. IMPRESSION: Marked tree in bud micronodularity is seen diffusely throughout the bilateral lungs with greatest involvement of the right lower lobe. The appearance suggests an acute infectious bronchiolitis. Fungal and TB could have this appearance, however correlation with sputum and blood cultures is recommended. Considered less likely but not excluded is a diffuse metastatic process. Recommend follow up imaging after treatment to confirm resolution. Near complete collapse of the right middle lobe. Right hilar, mediastinal, right supraclavicular, and right lower posterior cervical chain lymphadenopathy is presumably reactive. Medications Medications Current Medications Ondansetron HCl (Zofran Inj) 4 mg Q6H PRN IV NAUSEA AND/OR VOMITING; Start at 19:30 Acetaminophen (Tylenol Tab) 650 mg Q6H PRN PO PAIN LEVEL 1-3 OR FEVER; Start at 19:30 Acetaminophen/ Hydrocodone Bitart ([place] (5/325)) 1 tab Q6H PRN PO MODERATE PAIN LEVEL 4-6; Start 10/20/16 at 19:30 Morphine Sulfate (morphine) 2 mg Q4H PRN IV SEVERE PAIN LEVEL 7-10; Start 10/20 at 19:30 Docusate Sodium (Colace) 100 mg Q12H PRN PO CONSTIPATION; Start 10/20/16 at 19: 30 Zolpidem Tartrate (Ambien) 5 mg QHS PRN PO SLEEP; Start 10/20/16 at 19:30 Enoxaparin Sodium 40 mg 40 mg DAILY SC Last administered on 10/23/16 08:39; Admin Dose 40 MG; Start 10/21/16 at 09:00 Cefepime HCl 50 ml @ 100 mls/hr Q12 IVPB Last administered on 10/23/16 08:29 ; Admin Dose 100 MLS/HR; Start 10/21/16 at 21:00 Vancomycin HCl (Vancocin) 250 ml @ 125 mls/hr Q12H IVPB Last administered on 22:47; Admin Dose 125 MLS/HR; Start 10/22/16 at 22:00 Voriconazole (Vfend) 200 mg Q12 PO Last administered on 10/23/16 08:27; Admin Dose 200 MG; Start 10/23/16 at 09:00 EDWIN FRIAS MD Oct 23, 2016 10:32
[2016-10-23] MEDS: VANCOMYCIN 1 GM in NS 250 ML IVPB SCH (10:50)
[2016-10-23 14:59] VITALS: BP 111/62; RESP 18
[2016-10-23 16:45] LABS: SEVENTY TWO HOUR READING 0 mm (0-9)
--- NOTE | 2016-10-23 16:49 | PN ---
DATE: 10/23/2016 SUBJECTIVE DATA: No acute changes overnight. The patient is alert, feels good, denies pain, discomfort. No fevers. MICROBIOLOGY: Blood culture on admission grew coag-negative staph species, 1/2 sets. DIAGNOSTIC: CT of the chest revealed questionable acute infectious bronchiolitis. ANTIMICROBIALS: Patient is on voriconazole, vancomycin and cefepime. PHYSICAL EXAMINATION: GENERAL: Well-nourished, well-developed, middle-aged, man, who is alert, in no distress. HEENT: Head atraumatic, normocephalic. Sclerae anicteric. Buccal mucosa pink. NECK: Supple. CHEST: Chest rise symmetrical. Breath sounds clear. HEART: S1, S2. ABDOMEN: Soft, bowel sounds present. EXTREMITIES: Without cyanosis. ASSESSMENT: 1. Right middle lobe cavitary consolidation, questionable pulmonary TB versus Coxsackie versus cryptococcosis as per Hematology note, Serology for human immunodeficiency virus (HIV) had been negative. 2. Coag-negative Staph bacteremia, consistent with contaminant. PLAN: 1. We are going to start the patient on Levaquin. 2. Discontinue Vanco. 3. Keep him on cefepime for now. 4. Await for final workup. 5. Continue voriconazole for concern of Coxsackie and cryptococcus. Dictated By: Jm Iqbal NP /matthew/valery /Document#: [id number]
[2016-10-23 17:36] LABS: TB-NIL 0.01 IU/mL
[2016-10-23] MEDS: VANCOMYCIN 1.5 GM in SOD CHLORIDE 0.9% 250 ML IVPB SCH (21:27)
[2016-10-24 01:43] VITALS: BP 92/57; RESP 20
[2016-10-24 07:26] VITALS: BP 90/59; RESP 18
[2016-10-24] MEDS: CEFEPIME 1GM/50 ML (PMX) 50 ML IVPB SCH (08:23)
[2016-10-24] MEDS: VORICONAZOLE 200 MG TAB PO SCH (08:23)
[2016-10-24] MEDS: ENOXAPARIN 40 MG/0.4 ML SYG SC SCH (08:43)
[2016-10-24] MEDS: VANCOMYCIN 1.5 GM in SOD CHLORIDE 0.9% 250 ML IVPB SCH (10:17)
--- NOTE | 2016-10-24 12:08 | PN ---
Date/Time of Note Date/Time of Note DATE: 10/24/16 TIME: 12:05 Assessment/Plan VTE Prophylaxis VTE Prophylaxis Intervention: SCD's Lines/Catheters IV [facility]): Saline Lock Assessment/Plan Chief Complaint/Hosp Course Assessment and plan: 1. Right middle lobe cavitary consolidation, questionable pulmonary TB versus Coxsackie versus cryptococcosis as per Hematology note, ? Infectious bronchiolitis - Discontinue Vancomycin , continue cefepime - Continue voriconazole for concern of Coxsackie and cryptococcus. -Follow-up on sputum for Gram stain and culture -Rule out TB, AFP negative 1, PPD negative 72 hours. Follow-up ID recommendation for discontinuation of isolation -Cocci antigen -Pulmonary and ID consults appreciated -Airborne/droplet isolation as per infectious disease -HIV negative -His presentation and finding on imaging is most likely from a infectious process, tumor markers and testicular ultrasound are negative 2. Sepsis, secondary to above -See #1 -blood culture shows staph possibly secondary to contamination, follow-up ID recommendation -Continue Levaquin 3. Near complete collapse of the right middle lobe. Follow-up pulmonology recommendations Incentive spirometer Disposition: Follow infectious disease recommendations Problems: Subjective 24 Hr Interval Summary Free Text/Dictation Vision denies of any chest pain or shortness of breath Denies of any cough or hemoptysis Tolerate oral intake Exam/Review of Systems Vital Signs Vitals Vital Signs Date Time Temp Pulse Resp B/P Pulse Ox O2 Delivery O2 Flow Rate FiO2 10/24/16 07:26 97.9 80 18 90/59 94 10/20/16 18:24 Room Air Intake and Output 10/23/16 10/23/16 10/24/16 15:00 23:00 07:00 Intake Total 1790 ml 250 ml Balance 1790 ml 250 ml Exam General: The patient is well-developed, Not in acute distress. HEENT: Atraumatic, normocephalic. The pupils are equal and round . Neck: Supple with full range of motion. Chest: Normal expansion of the thorax during inspiration Lungs: Clear to auscultation bilaterally Heart: Normal S1-S2, Regular rhythm and rate. Abdomen: Soft , nontender, nondistended , bowel sounds are present. Extremities: Normal to inspection, no edema no cyanosis Neurologic: Normal mental status,The patient is awake, alert and oriented . Results Result Diagram: 10/23/1652510/23/16525 Medications Medications Current Medications Ondansetron HCl (Zofran Inj) 4 mg Q6H PRN IV NAUSEA AND/OR VOMITING; Start at 19:30 Acetaminophen (Tylenol Tab) 650 mg Q6H PRN PO PAIN LEVEL 1-3 OR FEVER; Start at 19:30 Acetaminophen/ Hydrocodone Bitart ([place] (5/325)) 1 tab Q6H PRN PO MODERATE PAIN LEVEL 4-6; Start 10/20/16 at 19:30 Morphine Sulfate (morphine) 2 mg Q4H PRN IV SEVERE PAIN LEVEL 7-10; Start 10/20 at 19:30 Docusate Sodium (Colace) 100 mg Q12H PRN PO CONSTIPATION; Start 10/20/16 at 19: 30 Zolpidem Tartrate (Ambien) 5 mg QHS PRN PO SLEEP; Start 10/20/16 at 19:30 Enoxaparin Sodium 40 mg 40 mg DAILY SC Last administered on 10/24/16 08:43; Admin Dose 40 MG; Start 10/21/16 at 09:00 Cefepime HCl (Maxipime 1gm/50 ml (Pmx)) 50 ml @ 100 mls/hr Q12 IVPB Last administered on 10/24/16 08:23; Admin Dose 100 MLS/HR; Start 10/21/16 at 21:00 Voriconazole 200 mg 200 mg Q12 PO Last administered on 10/24/16 08:23; Admin Dose 200 MG; Start 10/23/16 at 09:00 Vancomycin HCl/ Sodium Chloride (Vancocin/NS) 250 ml @ 83.333 mls/ hr Q12H IVPB Last administered on 10/24/16 10:17; Admin Dose 83.333 MLS/HR; Start at 22:00 EDWIN FRIAS MD Oct 24, 2016 12:08
--- NOTE | 2016-10-24 12:33 | CONS ---
Date/Time of Note Date/Time of Note DATE: 10/24/16 TIME: 12:31 Assessment/Plan Assessment/Plan Additional Assessment/Plan Plan and recommendations; 1. Patient admitted with right middle lobe pneumonia clinically improved. Continue current treatment. Obtain follow-up chest x-ray. If the chest x-ray findings are showing any worsening or no improvement, patient will then need to have a bronchoscopy performed. Consultation Date/Type/Reason Admit Date/Time Oct 20, 2016 at 15:46 Initial Consult Date Type of Consultation: Pulmonary 24 HR Interval Summary Free Text/Dictation Patient condition stable. Reporting decreased shortness. Denies any cough or sputum production. Any fever or chills. Denies any chest pain. General exam; young male, awake alert currently in no distress. Exam/Review of Systems Vital Signs Vitals Vital Signs Date Time Temp Pulse Resp B/P Pulse Ox O2 Delivery O2 Flow Rate FiO2 10/24/16 07:26 97.9 80 18 90/59 94 10/20/16 18:24 Room Air Intake and Output 10/23/16 10/23/16 10/24/16 15:00 23:00 07:00 Intake Total 1790 ml 250 ml Balance 1790 ml 250 ml Exam HEENT exam; supple neck, no JVD. No lymphadenopathy. Midline trachea. No thyromegaly. Pharynx is clear. Patient has good dentition. Pupils are midsize and reactive to light. Chest exam; clear to auscultation. S1-S2 audible, no murmurs. Regular rhythm. Abdomen exam; soft, nontender. No organomegaly. Bowel sounds audible. Extremity exam; no edema. No clubbing. ASSISTANT TO THE DIRECTOR exam; no focal deficit. Results Result Diagram: 10/23/1626 10/23/16525 Medications Medications Current Medications Ondansetron HCl (Zofran Inj) 4 mg Q6H PRN IV NAUSEA AND/OR VOMITING; Start at 19:30 Acetaminophen (Tylenol Tab) 650 mg Q6H PRN PO PAIN LEVEL 1-3 OR FEVER; Start at 19:30 Acetaminophen/ Hydrocodone Bitart ([place] (5/325)) 1 tab Q6H PRN PO MODERATE PAIN LEVEL 4-6; Start 10/20/16 at 19:30 Morphine Sulfate (morphine) 2 mg Q4H PRN IV SEVERE PAIN LEVEL 7-10; Start 10/20 at 19:30 Docusate Sodium (Colace) 100 mg Q12H PRN PO CONSTIPATION; Start 10/20/16 at 19: 30 Zolpidem Tartrate (Ambien) 5 mg QHS PRN PO SLEEP; Start 10/20/16 at 19:30 Enoxaparin Sodium 40 mg 40 mg DAILY SC Last administered on 10/24/16 08:43; Admin Dose 40 MG; Start 10/21/16 at 09:00 Cefepime HCl (Maxipime 1gm/50 ml (Pmx)) 50 ml @ 100 mls/hr Q12 IVPB Last administered on 10/24/16 08:23; Admin Dose 100 MLS/HR; Start 10/21/16 at 21:00 Voriconazole 200 mg 200 mg Q12 PO Last administered on 10/24/16 08:23; Admin Dose 200 MG; Start 10/23/16 at 09:00 Vancomycin HCl/ Sodium Chloride (Vancocin/NS) 250 ml @ 83.333 mls/ hr Q12H IVPB Last administered on 10/24/16 10:17; Admin Dose 83.333 MLS/HR; Start at 22:00 CARLYN PEÑA Oct 24, 2016 12:33
--- NOTE | 2016-10-24 13:56 | CONS ---
Date/Time of Note Date/Time of Note DATE: 10/24/16 TIME: 13:52 Assessment/Plan Assessment/Plan Chief Complaint/Hosp Course SUBJECTIVE DATA: No acute changes overnight. The patient is alert, feels good, denies pain, discomfort. No fevers. MICROBIOLOGY: Blood culture on admission grew coag-negative staph species, 1/2 sets. DIAGNOSTIC: CT of the chest revealed questionable acute infectious bronchiolitis. ANTIMICROBIALS: Patient is on voriconazole, vancomycin and cefepime. PHYSICAL EXAMINATION: GENERAL: Well-nourished, well-developed, middle-aged, man, who is alert, in no distress. HEENT: Head atraumatic, normocephalic. Sclerae anicteric. Buccal mucosa pink. NECK: Supple. CHEST: Chest rise symmetrical. Breath sounds clear. HEART: S1, S2. ABDOMEN: Soft, bowel sounds present. EXTREMITIES: Without cyanosis. ASSESSMENT: 1. Right middle lobe cavitary consolidation 2. Coag-negative Staph bacteremia, consistent with contaminant. PLAN: Stable, will start Levaquin, f/u repeat cxr, may need bronchoscopy per pulmonary rec-s==> low suspicion for TB DW pt CLAUDIO Gaitan Problems: Consultation Date/Type/Reason Admit Date/Time Oct 20, 2016 at 15:46 Initial Consult Date Type of Consultation: ID Exam/Review of Systems Vital Signs Vitals Vital Signs Date Time Temp Pulse Resp B/P Pulse Ox O2 Delivery O2 Flow Rate FiO2 10/24/16 07:26 97.9 80 18 90/59 94 10/20/16 18:24 Room Air Intake and Output 10/23/16 10/23/16 10/24/16 15:00 23:00 07:00 Intake Total 1790 ml 250 ml Balance 1790 ml 250 ml Results Result Diagram: 10/23/16 0526 10/23/16 05 Medications Medications Current Medications Ondansetron HCl (Zofran Inj) 4 mg Q6H PRN IV NAUSEA AND/OR VOMITING; Start at 19:30 Acetaminophen (Tylenol Tab) 650 mg Q6H PRN PO PAIN LEVEL 1-3 OR FEVER; Start at 19:30 Acetaminophen/ Hydrocodone Bitart ([place] (5/325)) 1 tab Q6H PRN PO MODERATE PAIN LEVEL 4-6; Start 10/20/16 at 19:30 Morphine Sulfate (morphine) 2 mg Q4H PRN IV SEVERE PAIN LEVEL 7-10; Start 10/20 at 19:30 Docusate Sodium (Colace) 100 mg Q12H PRN PO CONSTIPATION; Start 10/20/16 at 19: 30 Zolpidem Tartrate (Ambien) 5 mg QHS PRN PO SLEEP; Start 10/20/16 at 19:30 Enoxaparin Sodium 40 mg 40 mg DAILY SC Last administered on 10/24/16 08:43; Admin Dose 40 MG; Start 10/21/16 at 09:00 Cefepime HCl (Maxipime 1gm/50 ml (Pmx)) 50 ml @ 100 mls/hr Q12 IVPB Last administered on 10/24/16 08:23; Admin Dose 100 MLS/HR; Start 10/21/16 at 21:00 Voriconazole 200 mg 200 mg Q12 PO Last administered on 10/24/16 08:23; Admin Dose 200 MG; Start 10/23/16 at 09:00 Vancomycin HCl/ Sodium Chloride (Vancocin/NS) 250 ml @ 83.333 mls/ hr Q12H IVPB Last administered on 10/24/16 10:17; Admin Dose 83.333 MLS/HR; Start at 22:00 SHANNAN MCCLELLAND NP Oct 24, 2016 13:56
[2016-10-24] MEDS ORDERED: LEVOFLOXACIN 500 MG TAB PO ONE (15:00)
[2016-10-24 15:11] VITALS: BP 101/64; RESP 18
--- NOTE | 2016-10-24 15:51 | RADRPT ---
PROCEDURE: Chest Radiograph. CLINICAL INDICATION: Pneumonia TECHNIQUE: Single frontal chest radiograph. COMPARISON: Chest radiograph 10/20/2016 FINDINGS: The cardiomediastinal silhouette is within normal limits. There is a persistent right middle lobe i nfiltrate. The lungs are otherwise clear. No pleural effusion is identified. The bones are intact . IMPRESSION: 1. Stable right middle lobe infiltrate consistent with given history of pneumonia. Recommend follow -up to resolution. RPTAT: [facility] .Edgar Washington MD, MD Date Time Electronically viewed and signed by .Edgar Washington MD, MD on 10/24/2016 15:51 .B/
[2016-10-25 02:17] VITALS: BP 104/65; RESP 20
[2016-10-25] MEDS: LEVOFLOXACIN 500 MG TAB PO SCH (05:39)
[2016-10-25 08:13] VITALS: BP 99/55; RESP 18
[2016-10-25] MEDS: ENOXAPARIN 40 MG/0.4 ML SYG SC SCH (08:20)
--- NOTE | 2016-10-25 10:33 | PN ---
Date/Time of Note Date/Time of Note DATE: 10/25/16 TIME: 10:30 Assessment/Plan VTE Prophylaxis VTE Prophylaxis Intervention: SCD's Lines/Catheters IV [facility] Peripheral IV Assessment/Plan Chief Complaint/Hosp Course Assessment and plan: 1. Right middle lobe cavitary consolidation, questionable pulmonary TB versus Coxsackie versus cryptococcosis as per Hematology note, ? Infectious bronchiolitis - continue cefepime and Levaquin as per ID - Continue voriconazole for concern of Coxsackie and cryptococcus.-Airborne/ droplet isolation as per infectious disease -Follow-up on sputum for Gram stain and culture -Rule out TB, AFP negative 1, PPD negative 72 hours. -Cocci antigen -Pulmonary and ID consults appreciated Patient will need bronchoscopy as per pulmonology recommendation -HIV negative -His presentation and finding on imaging is most likely from a infectious process, tumor markers and testicular ultrasound are negative 2. Sepsis, secondary to above -See #1 -blood culture shows staph possibly secondary to contamination, follow-up ID recommendation -Continue Levaquin 3. Near complete collapse of the right middle lobe. Follow-up pulmonology recommendations Plan for bronchoscopy as per energy efficiency engineer Disposition: Follow infectious disease recommendations Problems: Subjective 24 Hr Interval Summary Free Text/Dictation Denies of any chest pain or shortness of breath Denies of any abdominal pain Tolerating oral intake Ambulating without any difficulty or shortness of breath Exam/Review of Systems Vital Signs Vitals Vital Signs Date Time Temp Pulse Resp B/P Pulse Ox O2 Delivery O2 Flow Rate FiO2 10/25/16 08:13 98.1 84 18 99/55 95 Intake and Output 10/24/16 10/24/16 10/25/16 15:00 23:00 07:00 Intake Total 800 ml 1700 ml 700 ml Balance 800 ml 1700 ml 700 ml Exam General: The patient is well-developed, Not in acute distress. HEENT: Atraumatic, normocephalic. The pupils are equal and round . Neck: Supple with full range of motion. Chest: Normal expansion of the thorax during inspiration Lungs: Clear to auscultation bilaterally Heart: Normal S1-S2, Regular rhythm and rate. Abdomen: Soft , nontender, nondistended , bowel sounds are present. Extremities: Normal to inspection, no edema no cyanosis Neurologic: Normal mental status,The patient is awake, alert and oriented . Results Result Diagram: 10/23/1652510/23/16525 Medications Medications Current Medications Ondansetron HCl (Zofran Inj) 4 mg Q6H PRN IV NAUSEA AND/OR VOMITING; Start at 19:30 Acetaminophen (Tylenol Tab) 650 mg Q6H PRN PO PAIN LEVEL 1-3 OR FEVER; Start at 19:30 Acetaminophen/ Hydrocodone Bitart ([place] (5/325)) 1 tab Q6H PRN PO MODERATE PAIN LEVEL 4-6; Start 10/20/16 at 19:30 Morphine Sulfate (morphine) 2 mg Q4H PRN IV SEVERE PAIN LEVEL 7-10; Start 10/20 at 19:30 Docusate Sodium (Colace) 100 mg Q12H PRN PO CONSTIPATION; Start 10/20/16 at 19: 30 Zolpidem Tartrate (Ambien) 5 mg QHS PRN PO SLEEP; Start 10/20/16 at 19:30 Enoxaparin Sodium (Lovenox) 40 mg DAILY SC Last administered on 10/25/16 08:20 ; Admin Dose 40 MG; Start 10/21/16 at 09:00 Levofloxacin (Levaquin) 500 mg DAILY@06 PO Last administered on 10/25/16 05:39 ; Admin Dose 500 MG; Start 10/25/16 at 06:00 EDWIN FRIAS MD Oct 25, 2016 10:32
--- NOTE | 2016-10-25 12:27 | CONS ---
Date/Time of Note Date/Time of Note DATE: 10/25/16 TIME: 12:25 Assessment/Plan Assessment/Plan Additional Assessment/Plan Chest x-ray was reviewed from yesterday which is showing improvement in right lower lobe infiltrate. Infiltrate appears less dense compared to prior chest x- ray from of this month. Assessment and recommendations; 1. Patient admitted with pneumonia with significant clinical improvement. Coccidiomycosis serology still pending. Continue current treatment. Obtain follow-up chest x-ray in 48 hours. If there is no significant improvement from chest x-ray from yesterday then the patient will need to have a bronchoscopy performed. Consultation Date/Type/Reason Admit Date/Time Oct 20, 2016 at 15:46 Type of Consultation: Pulmonary 24 HR Interval Summary Free Text/Dictation Patient condition stable. Denies any symptoms of shortness of breath, coughing , wheezing or fever. Complains of very scant sputum production. Denies any chest pain. General exam; young male, awake alert currently in no distress. Exam/Review of Systems Vital Signs Vitals Vital Signs Date Time Temp Pulse Resp B/P Pulse Ox O2 Delivery O2 Flow Rate FiO2 10/25/16 08:13 98.1 84 18 99/55 95 Intake and Output 10/24/16 10/24/16 10/25/16 15:00 23:00 07:00 Intake Total 800 ml 1700 ml 700 ml Balance 800 ml 1700 ml 700 ml Exam HEENT exam; supple neck, no JVD. No lymphadenopathy. Midline trachea. No thyromegaly. Pharynx is clear. Patient has good dentition. Chest exam; clear to auscultation. S1-S2 audible, no murmurs. Regular rhythm. Abdomen exam; soft, nontender. No organomegaly. Bowel sounds audible. Extremity exam; no peripheral edema. No clubbing. Pulses 2+ bilaterally. HUNTING AND FISHING GUIDE exam; no focal deficit. Results Result Diagram: 10/23/1652510/23/16525 Medications Medications Current Medications Ondansetron HCl (Zofran Inj) 4 mg Q6H PRN IV NAUSEA AND/OR VOMITING; Start at 19:30 Acetaminophen (Tylenol Tab) 650 mg Q6H PRN PO PAIN LEVEL 1-3 OR FEVER; Start at 19:30 Acetaminophen/ Hydrocodone Bitart ([place] (5/325)) 1 tab Q6H PRN PO MODERATE PAIN LEVEL 4-6; Start 10/20/16 at 19:30 Morphine Sulfate (morphine) 2 mg Q4H PRN IV SEVERE PAIN LEVEL 7-10; Start 10/20 at 19:30 Docusate Sodium (Colace) 100 mg Q12H PRN PO CONSTIPATION; Start 10/20/16 at 19: 30 Zolpidem Tartrate (Ambien) 5 mg QHS PRN PO SLEEP; Start 10/20/16 at 19:30 Enoxaparin Sodium (Lovenox) 40 mg DAILY SC Last administered on 10/25/16 08:20 ; Admin Dose 40 MG; Start 10/21/16 at 09:00 Levofloxacin (Levaquin) 500 mg DAILY@06 PO Last administered on 10/25/16 05:39 ; Admin Dose 500 MG; Start 10/25/16 at 06:00 CARLYN PEÑA Oct 25, 2016 12:27
--- NOTE | 2016-10-25 12:50 | CONS ---
Date/Time of Note Date/Time of Note DATE: 10/25/16 TIME: 12:48 Assessment/Plan Assessment/Plan Chief Complaint/Hosp Course SUBJECTIVE DATA: No acute changes overnight. The patient is alert, feels good, denies pain, discomfort. No fevers. MICROBIOLOGY: Blood culture on admission grew coag-negative staph species, 1/2 sets. DIAGNOSTIC: CT of the chest revealed questionable acute infectious bronchiolitis. ANTIMICROBIALS: Levaquin, Diflucan PHYSICAL EXAMINATION: GENERAL: Well-nourished, well-developed, middle-aged, man, who is alert, in no distress. HEENT: Head atraumatic, normocephalic. Sclerae anicteric. Buccal mucosa pink. NECK: Supple. CHEST: Chest rise symmetrical. Breath sounds clear. HEART: S1, S2. ABDOMEN: Soft, bowel sounds present. EXTREMITIES: Without cyanosis. ASSESSMENT: 1. Right middle lobe cavitary consolidation 2. Coag-negative Staph bacteremia, consistent with contaminant. PLAN: Main stable, continue antibiotics, await for cocci serology, follow pulmonary recommendations, may need bronchoscopy Problems: Consultation Date/Type/Reason Admit Date/Time Oct 20, 2016 at 15:46 Type of Consultation: id Exam/Review of Systems Vital Signs Vitals Vital Signs Date Time Temp Pulse Resp B/P Pulse Ox O2 Delivery O2 Flow Rate FiO2 10/25/16 08:13 98.1 84 18 99/55 95 Intake and Output 10/24/16 10/24/16 10/25/16 15:00 23:00 07:00 Intake Total 800 ml 1700 ml 700 ml Balance 800 ml 1700 ml 700 ml Results Result Diagram: 10/23/16 0526 10/23/16 0526 Medications Medications Current Medications Ondansetron HCl (Zofran Inj) 4 mg Q6H PRN IV NAUSEA AND/OR VOMITING; Start at 19:30 Acetaminophen (Tylenol Tab) 650 mg Q6H PRN PO PAIN LEVEL 1-3 OR FEVER; Start at 19:30 Acetaminophen/ Hydrocodone Bitart ([place] (5/325)) 1 tab Q6H PRN PO MODERATE PAIN LEVEL 4-6; Start 10/20/16 at 19:30 Morphine Sulfate (morphine) 2 mg Q4H PRN IV SEVERE PAIN LEVEL 7-10; Start 10/20 at 19:30 Docusate Sodium (Colace) 100 mg Q12H PRN PO CONSTIPATION; Start 10/20/16 at 19: 30 Zolpidem Tartrate (Ambien) 5 mg QHS PRN PO SLEEP; Start 10/20/16 at 19:30 Enoxaparin Sodium (Lovenox) 40 mg DAILY SC Last administered on 10/25/16 08:20 ; Admin Dose 40 MG; Start 10/21/16 at 09:00 Levofloxacin (Levaquin) 500 mg DAILY@06 PO Last administered on 10/25/16 05:39 ; Admin Dose 500 MG; Start 10/25/16 at 06:00 SHANNAN MCCLELLAND NP Oct 25, 2016 12:50
[2016-10-25 14:59] VITALS: BP 103/66; RESP 18
[2016-10-25 19:55] VITALS: BP 111/71; RESP 18
[2016-10-25 22:02] LABS: CRYPTOCOCCAL ANTIGEN - SOURCE Serum
[2016-10-26 02:00] VITALS: BP 100/62; RESP 20
[2016-10-26] MEDS: LEVOFLOXACIN 500 MG TAB PO SCH (05:54)
[2016-10-26 06:16] LABS: BASOPHIL # 0.1 10^3/ul (0.0-0.1); BASOPHILS % 0.8 % (0.0-2.0); EOSINOPHILS # 1.5 10^3/ul (0.0-0.5); EOSINOPHILS % 13.2 % (0.0-7.0); HEMATOCRIT 42.6 % (42.0-52.0); HEMOGLOBIN 14.4 g/dl (14.0-18.0); LYMPHOCYTES # 2.2 10^3/ul (0.8-2.9); LYMPHOCYTES % 19.4 % (15.0-51.0); MEAN CORPUSCULAR HEMOGLOBIN 31.4 pg (29.0-33.0); MEAN CORPUSCULAR HGB CONC 33.8 g/dl (32.0-37.0); MEAN PLATELET VOLUME 9.8 fl (7.4-10.4); MONOCYTES % 8.5 % (0.0-11.0); NEUTROPHIL # 6.6 10^3/ul (1.6-7.5); NEUTROPHILS % 57.8 % (39.0-77.0); PLATELET COUNT 394 10^3/UL (140-415); RED BLOOD COUNT 4.58 10^6/ul (4.70-6.10); RED CELL DISTRIBUTION WIDTH 11.5 % (11.5-14.5); WHITE BLOOD COUNT 11.5 10^3/ul (4.8-10.8)
[2016-10-26 06:46] LABS: CALCIUM 9.1 mg/dl (8.4-10.2); CREATININE 0.73 mg/dl (0.61-1.24); MAGNESIUM 2.1 mg/dl (1.7-2.5)
[2016-10-26 08:00] VITALS: BP 96/58; PULSE 77; RESP 18
[2016-10-26] MEDS: ENOXAPARIN 40 MG/0.4 ML SYG SC SCH (08:26)
[2016-10-26] MEDS ORDERED: FLUCONAZOLE 100 MG TAB PO SCH (11:00)
[2016-10-26] MEDS: FLUCONAZOLE 200 MG TAB PO SCH ×2 (12:02→20:37)
--- NOTE | 2016-10-26 12:23 | CONS ---
Date/Time of Note Date/Time of Note DATE: 10/26/16 TIME: 12:22 Consult Date/Type/Reason Admit Date/Time Oct 20, 2016 at 15:46 Initial Consult Date Type of Consultation: Pulmonary Subjective Patient states he feels better today remains clinically stable. Objective Vital Signs Date Time Temp Pulse Resp B/P Pulse Ox O2 Delivery O2 Flow Rate FiO2 10/26/16 08:00 97.5 77 18 96/58 100 Room Air Intake and Output 10/25/16 10/25/16 10/26/16 15:00 23:00 07:00 Intake Total 480 ml 500 ml Output Total 3 ml Balance 477 ml 500 ml Exam GENERAL: Well-nourished well-developed gentleman comfortable at rest VITAL SIGNS: per chart NECK: Supple. No JVD or lymphadenopathy. CARDIAC EXAM: S1, S2. No added sounds or murmurs. CHEST: clear bilaterally, No added sounds, rales or wheezes ABDOMEN: Soft, nontender. No guarding or rebound. EXTREMITIES: No cyanosis, clubbing or edema. NEUROLOGIC: Generalized weakness. No focal deficits. Results/Medications Result Diagram: 10/26/16 0544 10/26/16 0544 Results 24 hrs Laboratory Tests Test 10/26/16 05:44 10/26/16 07:26 White Blood Count 11.5 H Red Blood Count 4.58 L Hemoglobin 14.4 Hematocrit 42.6 Mean Corpuscular Volume 93.0 Mean Corpuscular Hemoglobin 31.4 Mean Corpuscular Hemoglobin Concent 33.8 Red Cell Distribution Width 11.5 Platelet Count 394 Mean Platelet Volume 9.8 Neutrophils % 57.8 Lymphocytes % 19.4 Monocytes % 8.5 Eosinophils % 13.2 H Basophils % 0.8 Nucleated Red Blood Cells % 0.0 Neutrophils # 6.6 Lymphocytes # 2.2 Monocytes # 1.0 H Eosinophils # 1.5 H Basophils # 0.1 Nucleated Red Blood Cells # 0.0 Sodium Level 140 Potassium Level 4.0 Chloride Level 105 Carbon Dioxide Level 29 Anion Gap 10 Blood Urea Nitrogen 11 Creatinine 0.73 Glucose Level 107 Calcium Level 9.1 Magnesium Level 2.1 Lab Scanned Report REFERENCE LAB Medications Current Medications Ondansetron HCl (Zofran Inj) 4 mg Q6H PRN IV NAUSEA AND/OR VOMITING; Start at 19:30 Acetaminophen (Tylenol Tab) 650 mg Q6H PRN PO PAIN LEVEL 1-3 OR FEVER; Start at 19:30 Acetaminophen/ Hydrocodone Bitart ([place] (5/325)) 1 tab Q6H PRN PO MODERATE PAIN LEVEL 4-6; Start 10/20/16 at 19:30 Morphine Sulfate (morphine) 2 mg Q4H PRN IV SEVERE PAIN LEVEL 7-10; Start 10/20 at 19:30 Docusate Sodium (Colace) 100 mg Q12H PRN PO CONSTIPATION; Start 10/20/16 at 19: 30 Zolpidem Tartrate (Ambien) 5 mg QHS PRN PO SLEEP; Start 10/20/16 at 19:30 Enoxaparin Sodium (Lovenox) 40 mg DAILY SC Last administered on 10/26/16 08:26 ; Admin Dose 40 MG; Start 10/21/16 at 09:00 Levofloxacin (Levaquin) 500 mg DAILY@06 PO Last administered on 10/26/16 05:54 ; Admin Dose 500 MG; Start 10/25/16 at 06:00 Fluconazole (Diflucan) 100 mg DAILY PO Last administered on 10/26/16 12:02; Admin Dose 100 MG; Start 10/26/16 at 11:00 Fluconazole (Diflucan) 400 mg BID PO Last administered on 10/26/16 12:02; Admin Dose 400 MG; Start 10/26/16 at 11:30 Assessment/Plan Chief Complaint/Hosp Course Assessment 1. Likely community acquired pneumonia, Clinical improvement pending radiographic improvement 2. Rule out coccidiomycosis Plan 1. If no radiographic improvement will require bronchoscopy 2. Chest x-ray in a.m. Problems: MAYCOL MONDRAGON MD, [facility] Oct 26, 2016 12:23
--- NOTE | 2016-10-26 12:36 | PN ---
Date/Time of Note Date/Time of Note DATE: 10/26/16 TIME: 12:29 Assessment/Plan VTE Prophylaxis VTE Prophylaxis Intervention: LMWH Lines/Catheters [facility] [place] Assessment/Plan Assessment/Plan 1. Right middle lobe cavitary consolidation positive for coccidioides, likely coccidiomycosis, treat with diflucan 2. Coag-negative Staph bacteremia, consistent with contaminant. 3. DVT prophylaxis: lovenox Subjective 24 Hr Interval Summary Free Text/Dictation afebrile. no cough or shortness Exam/Review of Systems Vital Signs Vitals Vital Signs Date Time Temp Pulse Resp B/P Pulse Ox O2 Delivery O2 Flow Rate FiO2 10/26/16 08:00 97.5 77 18 96/58 100 Room Air Intake and Output 10/25/16 10/25/16 10/26/16 15:00 23:00 07:00 Intake Total 480 ml 500 ml Output Total 3 ml Balance 477 ml 500 ml Exam Constitutional: alert, oriented, well developed Psych: nl mood/affect, no complaints Head: atraumatic, normocephalic Eyes: EOMI, nl conjunctiva, nl lids ENMT: nl external ears & nose, nl lips & teeth, nl nasal mucosa & septum Neck: non-tender, supple Respiratory: clear to auscultation, normal air movement, No congested cough, No crackles/rales, No diminished breath sounds, No intercostal retraction, No labored breathing, No other, No respirations, No tactile fremitus, No wheezing Cardiovascular: nl pulses, regular rate and rhythm, No S3, No S4, No bruits, No diastolic murmur, No edema, No gallop, No irregular rhythm, No jugular venous distention (JVD), No murmurs/extra sounds, No other, No rub, No systolic murmur Gastrointestinal: nl liver, spleen, non-tender, soft, No ascites, No bowel sounds, No distended, No firm, No hepatomegaly, No mass , No other, No rebound or guarding, No splenomegaly, No surgical scars, No tender Musculoskeletal: nl extremities to inspection Extremities: normal pulses Neurological: HEAD KNITTING MACHINE FIXER II-XII intact, nl mental status, nl speech, nl strength Skin: nl turgor Lymph: nl lymph nodes Results Result Diagram: 10/26/1644 10/26/1644 Results 24 hrs Laboratory Tests Test 10/26/16 05:44 10/26/16 07:26 White Blood Count 11.5 H Red Blood Count 4.58 L Hemoglobin 14.4 Hematocrit 42.6 Mean Corpuscular Volume 93.0 Mean Corpuscular Hemoglobin 31.4 Mean Corpuscular Hemoglobin Concent 33.8 Red Cell Distribution Width 11.5 Platelet Count 394 Mean Platelet Volume 9.8 Neutrophils % 57.8 Lymphocytes % 19.4 Monocytes % 8.5 Eosinophils % 13.2 H Basophils % 0.8 Nucleated Red Blood Cells % 0.0 Neutrophils # 6.6 Lymphocytes # 2.2 Monocytes # 1.0 H Eosinophils # 1.5 H Basophils # 0.1 Nucleated Red Blood Cells # 0.0 Sodium Level 140 Potassium Level 4.0 Chloride Level 105 Carbon Dioxide Level 29 Anion Gap 10 Blood Urea Nitrogen 11 Creatinine 0.73 Glucose Level 107 Calcium Level 9.1 Magnesium Level 2.1 Lab Scanned Report REFERENCE LAB Medications Medications Current Medications Ondansetron HCl (Zofran Inj) 4 mg Q6H PRN IV NAUSEA AND/OR VOMITING; Start at 19:30 Acetaminophen (Tylenol Tab) 650 mg Q6H PRN PO PAIN LEVEL 1-3 OR FEVER; Start at 19:30 Acetaminophen/ Hydrocodone Bitart ([place] (5/325)) 1 tab Q6H PRN PO MODERATE PAIN LEVEL 4-6; Start 10/20/16 at 19:30 Morphine Sulfate (morphine) 2 mg Q4H PRN IV SEVERE PAIN LEVEL 7-10; Start 10/20 at 19:30 Docusate Sodium (Colace) 100 mg Q12H PRN PO CONSTIPATION; Start 10/20/16 at 19: 30 Zolpidem Tartrate (Ambien) 5 mg QHS PRN PO SLEEP; Start 10/20/16 at 19:30 Enoxaparin Sodium (Lovenox) 40 mg DAILY SC Last administered on 10/26/16 08:26 ; Admin Dose 40 MG; Start 10/21/16 at 09:00 Levofloxacin (Levaquin) 500 mg DAILY@06 PO Last administered on 10/26/16 05:54 ; Admin Dose 500 MG; Start 10/25/16 at 06:00 Fluconazole (Diflucan) 100 mg DAILY PO Last administered on 10/26/16 12:02; Admin Dose 100 MG; Start 10/26/16 at 11:00 Fluconazole (Diflucan) 400 mg BID PO Last administered on 10/26/16 12:02; Admin Dose 400 MG; Start 10/26/16 at 11:30 BERTRAND MEANS MD Oct 26, 2016 12:36
[2016-10-26 14:00] VITALS: BP 118/63; PULSE 76; RESP 20
--- NOTE | 2016-10-26 14:25 | CONS ---
Date/Time of Note Date/Time of Note DATE: 10/26/16 TIME: 14:23 Assessment/Plan Assessment/Plan Chief Complaint/Hosp Course SUBJECTIVE DATA: Alert feels good denies pain discomfort no fevers Temperature 97.5 pulse 77 respirations 18 blood pressure 96/58 saturation 100 on room air Cocci serology came back positive Antimicrobials: Fluconazole 400 mg twice a day by mouth and oral Levaquin PHYSICAL EXAMINATION: GENERAL: Well-nourished, well-developed, middle-aged, man, who is alert, in no distress. HEENT: Head atraumatic, normocephalic. Sclerae anicteric. Buccal mucosa pink. NECK: Supple. CHEST: Chest rise symmetrical. Breath sounds clear. HEART: S1, S2. ABDOMEN: Soft, bowel sounds present. EXTREMITIES: Without cyanosis. ASSESSMENT: 1. Right middle lobe cavitary consolidation consistent with coccidiomycosis 2. Coag-negative Staph bacteremia, consistent with contaminant. PLAN: Clinically stable, continue on current antimicrobials, follow repeat chest x-ray and pulmonary recommendations. Anticipate discharge on high-dose fluconazole for indefinite time Problems: Consultation Date/Type/Reason Admit Date/Time Oct 20, 2016 at 15:46 Type of Consultation: ID Exam/Review of Systems Vital Signs Vitals Vital Signs Date Time Temp Pulse Resp B/P Pulse Ox O2 Delivery O2 Flow Rate FiO2 10/26/16 08:00 97.5 77 18 96/58 100 Room Air Intake and Output 10/25/16 10/25/16 10/26/16 15:00 23:00 07:00 Intake Total 480 ml 500 ml Output Total 3 ml Balance 477 ml 500 ml Results Result Diagram: 10/26/16 0544 10/26/16 0544 Results 24 hrs Laboratory Tests Test 10/26/16 05:44 10/26/16 07:26 White Blood Count 11.5 H Red Blood Count 4.58 L Hemoglobin 14.4 Hematocrit 42.6 Mean Corpuscular Volume 93.0 Mean Corpuscular Hemoglobin 31.4 Mean Corpuscular Hemoglobin Concent 33.8 Red Cell Distribution Width 11.5 Platelet Count 394 Mean Platelet Volume 9.8 Neutrophils % 57.8 Lymphocytes % 19.4 Monocytes % 8.5 Eosinophils % 13.2 H Basophils % 0.8 Nucleated Red Blood Cells % 0.0 Neutrophils # 6.6 Lymphocytes # 2.2 Monocytes # 1.0 H Eosinophils # 1.5 H Basophils # 0.1 Nucleated Red Blood Cells # 0.0 Sodium Level 140 Potassium Level 4.0 Chloride Level 105 Carbon Dioxide Level 29 Anion Gap 10 Blood Urea Nitrogen 11 Creatinine 0.73 Glucose Level 107 Calcium Level 9.1 Magnesium Level 2.1 Lab Scanned Report REFERENCE LAB Medications Medications Current Medications Ondansetron HCl (Zofran Inj) 4 mg Q6H PRN IV NAUSEA AND/OR VOMITING; Start at 19:30 Acetaminophen (Tylenol Tab) 650 mg Q6H PRN PO PAIN LEVEL 1-3 OR FEVER; Start at 19:30 Acetaminophen/ Hydrocodone Bitart ([place] (5/325)) 1 tab Q6H PRN PO MODERATE PAIN LEVEL 4-6; Start 10/20/16 at 19:30 Morphine Sulfate (morphine) 2 mg Q4H PRN IV SEVERE PAIN LEVEL 7-10; Start 10/20 at 19:30 Docusate Sodium (Colace) 100 mg Q12H PRN PO CONSTIPATION; Start 10/20/16 at 19: 30 Zolpidem Tartrate (Ambien) 5 mg QHS PRN PO SLEEP; Start 10/20/16 at 19:30 Enoxaparin Sodium (Lovenox) 40 mg DAILY SC Last administered on 10/26/16 08:26 ; Admin Dose 40 MG; Start 10/21/16 at 09:00 Levofloxacin (Levaquin) 500 mg DAILY@06 PO Last administered on 10/26/16 05:54 ; Admin Dose 500 MG; Start 10/25/16 at 06:00 Fluconazole (Diflucan) 100 mg DAILY PO Last administered on 10/26/16 12:02; Admin Dose 100 MG; Start 10/26/16 at 11:00 Fluconazole (Diflucan) 400 mg BID PO Last administered on 10/26/16 12:02; Admin Dose 400 MG; Start 10/26/16 at 11:30 SHANNAN MCCLELLAND NP Oct 26, 2016 14:25
[2016-10-26 19:19] VITALS: BP 101/61; RESP 18
[2016-10-27 02:00] VITALS: BP 95/64; RESP 18
[2016-10-27] MEDS: LEVOFLOXACIN 500 MG TAB PO SCH (05:16)
[2016-10-27 07:58] VITALS: BP 97/60; RESP 18
--- NOTE | 2016-10-27 08:49 | RADRPT ---
PROCEDURE: XR Chest. CLINICAL INDICATION: Follow-up pneumonia TECHNIQUE: Single portable view of the chest was obtained. COMPARISON: 10/24/2016 and 10/20/2016 FINDINGS: Normal cardiomediastinal silhouette. Similar right mid lung consolidation. No pleural effusion or pn eumothorax. IMPRESSION: Similar appearance of right mid lung consolidation consistent with pneumonia. RPTAT:AAJJ Physician Genesis Date Time Electronically viewed and signed by Miriam Tompkins Physician on 10/27/2016 08:49 /
[2016-10-27] MEDS: FLUCONAZOLE 200 MG TAB PO SCH ×2 (09:18→20:17)
[2016-10-27] MEDS: ENOXAPARIN 40 MG/0.4 ML SYG SC SCH (09:26)
--- NOTE | 2016-10-27 13:39 | PN ---
Date/Time of Note Date/Time of Note DATE: 10/27/16 TIME: 13:37 Assessment/Plan VTE Prophylaxis VTE Prophylaxis Intervention: LMWH Lines/Catheters IV [facility]from [facility]): Saline Lock Assessment/Plan Assessment/Plan 1. 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 Coag-negative Staph bacteremia, consistent with contaminant. 3. DVT prophylaxis: lovenox Subjective 24 Hr Interval Summary Free Text/Dictation no fever. no shortness of breath Exam/Review of Systems Vital Signs Vitals Vital Signs Date Time Temp Pulse Resp B/P Pulse Ox O2 Delivery O2 Flow Rate FiO2 10/27/16 07:58 97.4 85 18 97/60 94 10/26/16 14:00 Room Air Intake and Output 10/26/16 10/26/16 10/27/16 15:00 23:00 07:00 Intake Total 940 ml Balance 940 ml Exam Constitutional: alert, oriented, well developed Psych: nl mood/affect, no complaints Head: atraumatic, normocephalic Eyes: EOMI, PERRL, nl conjunctiva, nl lids ENMT: nl external ears & nose, nl lips & teeth, nl nasal mucosa & septum Neck: non-tender, supple Respiratory: clear to auscultation, normal air movement, No congested cough, No crackles/rales, No diminished breath sounds, No intercostal retraction, No labored breathing, No other, No respirations, No tactile fremitus, No wheezing Cardiovascular: nl pulses, regular rate and rhythm, No S3, No S4, No bruits, No diastolic murmur, No edema, No gallop, No irregular rhythm, No jugular venous distention (JVD), No murmurs/extra sounds, No other, No rub, No systolic murmur Gastrointestinal: nl liver, spleen, non-tender, soft, No ascites, No bowel sounds, No distended, No firm, No hepatomegaly, No mass , No other, No rebound or guarding, No splenomegaly, No surgical scars, No tender Musculoskeletal: nl extremities to inspection Extremities: normal pulses, No calf tenderness, No clubbing, No cyanosis, No edema, No other, No palpable cord, No pitting pedal edema, No tenderness Neurological: FRUIT TESTER II-XII intact, nl mental status, nl speech, nl strength Skin: nl turgor Lymph: nl lymph nodes Results Result Diagram: 10/26/1644 10/26/1644 Medications Medications Current Medications Ondansetron HCl (Zofran Inj) 4 mg Q6H PRN IV NAUSEA AND/OR VOMITING; Start at 19:30 Acetaminophen (Tylenol Tab) 650 mg Q6H PRN PO PAIN LEVEL 1-3 OR FEVER; Start at 19:30 Acetaminophen/ Hydrocodone Bitart ([place] (5/325)) 1 tab Q6H PRN PO MODERATE PAIN LEVEL 4-6; Start 10/20/16 at 19:30 Morphine Sulfate (morphine) 2 mg Q4H PRN IV SEVERE PAIN LEVEL 7-10; Start 10/20 at 19:30 Docusate Sodium (Colace) 100 mg Q12H PRN PO CONSTIPATION; Start 10/20/16 at 19: 30 Zolpidem Tartrate (Ambien) 5 mg QHS PRN PO SLEEP; Start 10/20/16 at 19:30 Enoxaparin Sodium (Lovenox) 40 mg DAILY SC Last administered on 10/27/16 09:26 ; Admin Dose 40 MG; Start 10/21/16 at 09:00 Levofloxacin (Levaquin) 500 mg DAILY@06 PO Last administered on 10/27/16 05:16 ; Admin Dose 500 MG; Start 10/25/16 at 06:00 Fluconazole (Diflucan) 400 mg BID PO Last administered on 10/27/16 09:18; Admin Dose 400 MG; Start 10/26/16 at 11:30 BERTRAND MEANS MD Oct 27, 2016 13:39
[2016-10-27 14:02] VITALS: BP 98/61; RESP 18
--- NOTE | 2016-10-27 14:03 | CONS ---
Date/Time of Note Date/Time of Note DATE: 10/27/16 TIME: 14:01 Assessment/Plan Assessment/Plan Chief Complaint/Hosp Course SUBJECTIVE DATA: No acute changes. Alert, breathing comfortably on room air, no fevers Cocci serology came back positive Antimicrobials: Fluconazole 400 mg twice a day by mouth and oral Levaquin PHYSICAL EXAMINATION: GENERAL: Well-nourished, well-developed, middle-aged, man, who is alert, in no distress. HEENT: Head atraumatic, normocephalic. Sclerae anicteric. Buccal mucosa pink. NECK: Supple. CHEST: Chest rise symmetrical. Breath sounds clear. HEART: S1, S2. ABDOMEN: Soft, bowel sounds present. EXTREMITIES: Without cyanosis. ASSESSMENT: 1. Right middle lobe cavitary consolidation consistent with coccidiomycosis 2. Coag-negative Staph bacteremia, consistent with contaminant. PLAN: Remains stable, anticipate discharge on high-dose fluconazole (400 bid) for indefinite time, and to follow with primary care provider and pulmonary specialists outpatient, serology for cocci need to be repeated DW DR Butler Problems: Consultation Date/Type/Reason Admit Date/Time Oct 20, 2016 at 15:46 Type of Consultation: ID Exam/Review of Systems Vital Signs Vitals Vital Signs Date Time Temp Pulse Resp B/P Pulse Ox O2 Delivery O2 Flow Rate FiO2 10/27/16 07:58 97.4 85 18 97/60 94 10/26/16 14:00 Room Air Intake and Output 10/26/16 10/26/16 10/27/16 15:00 23:00 07:00 Intake Total 940 ml Balance 940 ml Results Result Diagram: 10/26/16 0544 10/26/16 0544 Medications Medications Current Medications Ondansetron HCl (Zofran Inj) 4 mg Q6H PRN IV NAUSEA AND/OR VOMITING; Start at 19:30 Acetaminophen (Tylenol Tab) 650 mg Q6H PRN PO PAIN LEVEL 1-3 OR FEVER; Start at 19:30 Acetaminophen/ Hydrocodone Bitart ([place] (5/325)) 1 tab Q6H PRN PO MODERATE PAIN LEVEL 4-6; Start 10/20/16 at 19:30 Morphine Sulfate (morphine) 2 mg Q4H PRN IV SEVERE PAIN LEVEL 7-10; Start 10/20 at 19:30 Docusate Sodium (Colace) 100 mg Q12H PRN PO CONSTIPATION; Start 10/20/16 at 19: 30 Zolpidem Tartrate (Ambien) 5 mg QHS PRN PO SLEEP; Start 10/20/16 at 19:30 Enoxaparin Sodium (Lovenox) 40 mg DAILY SC Last administered on 10/27/16 09:26 ; Admin Dose 40 MG; Start 10/21/16 at 09:00 Levofloxacin (Levaquin) 500 mg DAILY@06 PO Last administered on 10/27/16 05:16 ; Admin Dose 500 MG; Start 10/25/16 at 06:00 Fluconazole (Diflucan) 400 mg BID PO Last administered on 10/27/16 09:18; Admin Dose 400 MG; Start 10/26/16 at 11:30 SHANNAN MCCLELLAND NP Oct 27, 2016 14:03
--- NOTE | 2016-10-27 16:53 | CONS ---
Date/Time of Note Date/Time of Note DATE: 10/27/16 TIME: 16:52 Consult Date/Type/Reason Admit Date/Time Oct 20, 2016 at 15:46 Type of Consultation: Pulm Subjective Comfortable. Objective Vital Signs Date Time Temp Pulse Resp B/P Pulse Ox O2 Delivery O2 Flow Rate FiO2 10/27/16 14:02 97.8 88 18 98/61 18 10/26/16 14:00 Room Air Intake and Output 10/26/16 10/26/16 10/27/16 15:00 23:00 07:00 Intake Total 940 ml Balance 940 ml Exam GENERAL: Well-nourished well-developed gentleman comfortable at rest VITAL SIGNS: per chart NECK: Supple. No JVD or lymphadenopathy. CARDIAC EXAM: S1, S2. No added sounds or murmurs. CHEST: clear bilaterally, No added sounds, rales or wheezes ABDOMEN: Soft, nontender. No guarding or rebound. EXTREMITIES: No cyanosis, clubbing or edema. NEUROLOGIC: Generalized weakness. No focal deficits. Results/Medications Result Diagram: 10/26/16 0544 10/26/16 0544 Medications Current Medications Ondansetron HCl (Zofran Inj) 4 mg Q6H PRN IV NAUSEA AND/OR VOMITING; Start at 19:30 Acetaminophen (Tylenol Tab) 650 mg Q6H PRN PO PAIN LEVEL 1-3 OR FEVER; Start at 19:30 Acetaminophen/ Hydrocodone Bitart ([place] (5/325)) 1 tab Q6H PRN PO MODERATE PAIN LEVEL 4-6; Start 10/20/16 at 19:30 Morphine Sulfate (morphine) 2 mg Q4H PRN IV SEVERE PAIN LEVEL 7-10; Start 10/20 at 19:30 Docusate Sodium (Colace) 100 mg Q12H PRN PO CONSTIPATION; Start 10/20/16 at 19: 30 Zolpidem Tartrate (Ambien) 5 mg QHS PRN PO SLEEP; Start 10/20/16 at 19:30 Enoxaparin Sodium (Lovenox) 40 mg DAILY SC Last administered on 10/27/16 09:26 ; Admin Dose 40 MG; Start 10/21/16 at 09:00 Fluconazole (Diflucan) 400 mg BID PO Last administered on 9/22/17at 09:18; Admin Dose 400 MG; Start 10/26/16 at 11:30 Assessment/Plan Chief Complaint/Hosp Course Assessment 1. RML PNA, coccidiomycosis serology positive. Plan 1. Continue diflucan dc ok from pulm standpoint, repeat cxr 1 month. d/w patient. he needs PMD. Problems: MAYCOL MONDRAGON MD[facility] Oct 27, 2016 16:53
[2016-10-27 20:19] VITALS: BP 114/74; RESP 18
[2016-10-28 01:57] VITALS: BP 113/69; RESP 18
[2016-10-28 08:23] VITALS: BP 99/70; RESP 16
[2016-10-28] MEDS: FLUCONAZOLE 200 MG TAB PO SCH (09:06)
[2016-10-28] MEDS: ENOXAPARIN 40 MG/0.4 ML SYG SC SCH (09:12)
--- NOTE | 2016-10-28 13:25 | PN ---
Date/Time of Note Date/Time of Note DATE: 10/28/16 TIME: 13:24 Assessment/Plan VTE Prophylaxis VTE Prophylaxis Intervention: LMWH Lines/Catheters IV Catheter Type (from Nrsg): Saline Lock Assessment/Plan Assessment/Plan 1. 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 Coag-negative Staph bacteremia, consistent with contaminant. 3. DVT prophylaxis: lovenox Subjective 24 Hr Interval Summary Free Text/Dictation afebrile, BP stable, no fever Exam/Review of Systems Vital Signs Vitals Vital Signs Date Time Temp Pulse Resp B/P Pulse Ox O2 Delivery O2 Flow Rate FiO2 10/28/16 08:23 97.3 68 16 99/70 99 10/26/16 14:00 Room Air Intake and Output 10/27/16 10/27/16 10/28/16 15:00 23:00 07:00 Intake Total 600 ml 400 ml Balance 600 ml 400 ml Exam GENERAL: Well-nourished well-developed gentleman comfortable at rest VITAL SIGNS: per chart NECK: Supple. No JVD or lymphadenopathy. CARDIAC EXAM: S1, S2. No added sounds or murmurs. CHEST: clear bilaterally, No added sounds, rales or wheezes ABDOMEN: Soft, nontender. No guarding or rebound. EXTREMITIES: No cyanosis, clubbing or edema. NEUROLOGIC: Generalized weakness. No focal deficits. Results Result Diagram: 10/26/16 0544 10/26/1644 Medications Medications Current Medications Ondansetron HCl (Zofran Inj) 4 mg Q6H PRN IV NAUSEA AND/OR VOMITING; Start at 19:30 Acetaminophen (Tylenol Tab) 650 mg Q6H PRN PO PAIN LEVEL 1-3 OR FEVER; Start at 19:30 Acetaminophen/ Hydrocodone Bitart ([place] (5/325)) 1 tab Q6H PRN PO MODERATE PAIN LEVEL 4-6; Start 10/20/16 at 19:30 Morphine Sulfate (morphine) 2 mg Q4H PRN IV SEVERE PAIN LEVEL 7-10; Start 10/20 at 19:30 Docusate Sodium (Colace) 100 mg Q12H PRN PO CONSTIPATION; Start 10/20/16 at 19: 30 Zolpidem Tartrate (Ambien) 5 mg QHS PRN PO SLEEP; Start 10/20/16 at 19:30 Enoxaparin Sodium (Lovenox) 40 mg DAILY SC Last administered on 10/28/16 09:12 ; Admin Dose 40 MG; Start 10/21/16 at 09:00 Fluconazole (Diflucan) 400 mg BID PO Last administered on 10/28/16 09:06; Admin Dose 400 MG; Start 10/26/16 at 11:30 RONNA BLEDSOE MD Oct 28, 2016 13:25
--- NOTE | 2016-10-28 13:28 | PDOCDIS ---
Discharge Instructions CONDITION Patient Condition: Good HOME CARE INSTRUCTIONS: Diet Instructions: RegularSpecial Diet: Regular ACTIVITY: Activity Restrictions: Slowly Increase Activity Rest between Activity Avoid heavy lifting Avoid Heavy Housework FOLLOW UP/APPOINTMENTS Follow-up Plan follow up with his own PMD in 1-2 week after discharge (he needs to set up appt with his PMD through his HMO insurance) RONNA BLEDSOE MD Oct 28, 2016 13:27
[2016-10-28] MEDS ORDERED: FLUC200T36 PO (13:29)
--- NOTE | 2016-10-28 13:56 | CONS ---
Date/Time of Note Date/Time of Note DATE: 10/28/16 TIME: 13:55 Assessment/Plan Assessment/Plan Chief Complaint/Hosp Course SUBJECTIVE DATA: No acute changes. Alert, feels good ready to be discharged home Cocci serology came back positive Antimicrobials: Fluconazole 400 mg twice a day by mouth and oral Levaquin PHYSICAL EXAMINATION: GENERAL: Well-nourished, well-developed, middle-aged, man, who is alert, in no distress. HEENT: Head atraumatic, normocephalic. Sclerae anicteric. Buccal mucosa pink. NECK: Supple. CHEST: Chest rise symmetrical. Breath sounds clear. HEART: S1, S2. ABDOMEN: Soft, bowel sounds present. EXTREMITIES: Without cyanosis. ASSESSMENT: 1. Right middle lobe cavitary consolidation consistent with coccidiomycosis 2. Coag-negative Staph bacteremia, consistent with contaminant. PLAN: Remains stable, anticipate discharge on high-dose fluconazole (400 bid) for indefinite time, and to follow with primary care provider and pulmonary specialists outpatient, serology for cocci need to be repeated periodically. Discontinue Levaquin CLADUIO Butler Problems: Consultation Date/Type/Reason Admit Date/Time Oct 20, 2016 at 15:46 Type of Consultation: id Exam/Review of Systems Vital Signs Vitals Vital Signs Date Time Temp Pulse Resp B/P Pulse Ox O2 Delivery O2 Flow Rate FiO2 10/28/16 08:23 97.3 68 16 99/70 99 10/26/16 14:00 Room Air Intake and Output 10/27/16 10/27/16 10/28/16 15:00 23:00 07:00 Intake Total 600 ml 400 ml Balance 600 ml 400 ml Results Result Diagram: 10/26/16 0544 10/26/16 0544 Medications Medications Current Medications Ondansetron HCl (Zofran Inj) 4 mg Q6H PRN IV NAUSEA AND/OR VOMITING; Start at 19:30 Acetaminophen (Tylenol Tab) 650 mg Q6H PRN PO PAIN LEVEL 1-3 OR FEVER; Start at 19:30 Acetaminophen/ Hydrocodone Bitart ([place] (5/325)) 1 tab Q6H PRN PO MODERATE PAIN LEVEL 4-6; Start 10/20/16 at 19:30 Morphine Sulfate (morphine) 2 mg Q4H PRN IV SEVERE PAIN LEVEL 7-10; Start 10/20 at 19:30 Docusate Sodium (Colace) 100 mg Q12H PRN PO CONSTIPATION; Start 10/20/16 at 19: 30 Zolpidem Tartrate (Ambien) 5 mg QHS PRN PO SLEEP; Start 10/20/16 at 19:30 Enoxaparin Sodium (Lovenox) 40 mg DAILY SC Last administered on 10/28/16 09:12 ; Admin Dose 40 MG; Start 10/21/16 at 09:00 Fluconazole (Diflucan) 400 mg BID PO Last administered on 10/28/16 09:06; Admin Dose 400 MG; Start 10/26/16 at 11:30 SHANNAN MCCLELLAND NP Oct 28, 2016 13:55
--- NOTE | 2016-10-30 15:04 | DS ---
Date/Time of Note Date/Time of Note DATE: 10/30/16 TIME: 15:04 Discharge Summary Admission/Discharge Info Admit Date/Time Oct 20, 2016 at 15:46 Discharge Date/Time Oct 28, 2016 at 14:45 Discharge Diagnosis 1. 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 Coag-negative Staph bacteremia, consistent with contaminant. Patient Condition: Good Consults Pulmonary consult Dr.Sanjay Butler Infectious disease service Procedures CT neck, Testicular US, Soft tissue Neck CT Hx of Present Illness This is a 36-year-old male with no past medical history who presented to the emergency department complaining of right-sided neck swelling. He said that 2 weeks ago, started developing cough productive of yellow sputum as well as fever. He was diagnosed with pneumonia and was placed on Levaquin and after that he said his symptoms resolved completely. Yesterday, he noticed swelling on the right side of his neck which worsened today in the surgery he came here for evaluation. He said there is only very minimal tenderness. By the time I saw him, he said the swelling has already gone down remarkably since he presented to the ER. He looks very comfortable and currently he does not have any complaints. He denied shortness of breath, fever/chills or chest pain. Denied history of TB. When he presented to the ER, chest x-ray showed right lower lobe consolidation, suspicious for pneumonia. Chest CT showed Marked tree in bud micronodularity is seen diffusely throughout the bilateral lungs with greatest involvement of the right lower lobe. The appearance suggests an acute infectious bronchiolitis. Fungal and TB could have this appearance, however correlation with sputum and blood cultures is recommended. Considered less likely but not excluded is a diffuse metastatic process. Recommend follow up imaging after treatment to confirm resolution. Near complete collapse of the right middle lobe. Right hilar, mediastinal, right supraclavicular, and right lower posterior cervical chain lymphadenopathy is presumably reactive. Hospital Course Patine was admitted for right middle lobe pneumonia- Intially treated with IV abx ceftriaxone and azitromycin. he was followed up by Pulmonary and ID/ He was diagnosed with Right middle lobe cavitary consolidation consistent with coccidiomycosia. Owen robbins culture was positive for Coag-negative Staph bacteremia, consistent with contaminant. After having iD follow up he was initially treated with IV acyclovir and discharged home with acyclovir 400mg PO BID for indefinite time. He is given prescription for one year. he has no PMD so he was advised to follow up at [facility] for further care and follow up. Home Meds Active Scripts Fluconazole* (Diflucan*) 200 Mg Tablet, 400 MG PO BID for Cocci Pneumonia for 365 Days, TAB Prov:RONNA BLEDSOE MD 10/28/16 Follow-up Plan follow up with his own PMD in 1-2 week after discharge (he needs to set up appt with his PMD through his HMO insurance) Primary Care Provider Not On Staff Doctor Time spent on discharge: > 30 minutes RONNA BLEDSOE MD Oct 30, 2016 15:04 follow up with his own PMD in 1-2 week after discharge (he needs to set up appt with his PMD through his HMO insurance) Primary Care Provider Not On Staff Doctor RONNA BLEDSOE MD Oct 30, 2016 15:04
== END 2016-10-28 14:45 | disposition home or self-care (01) | DRG 871 ==
LOC: FTE 11:17 → MS2 15:46
PROVIDERS: ADMIT Internal Medicine; ATTEND Internal Medicine
DX: A41.9 Sepsis, unspecified organism (principal); J18.9 Pneumonia, unspecified organism; B38.2 Pulmonary coccidioidomycosis, unspecified; J21.9 Acute bronchiolitis, unspecified; F17.210 Nicotine dependence, cigarettes, uncomplicated
CPT/HCPCS: 36415; 70491; 71010; 71260; 76870; 80048; 80053; 80061; 80202; 81001; 81003; 82378; 83036; 83735; 84100; 85025; 86301; 86480; 86580; 86635; 86641; 86703; 87040; 87081; 87116; 96374; 96375; J0456; J0692; J0696; J1650; J3370; J7030; J7050; Q9967